=== PATIENT | female | born 1975 | race Caucasian/White ===

== ENCOUNTER → 2019-12-15 11:12 | Outpatient (BNVA) | payer OTHER, SELFPAY | PROVIDERS: PCP Internal Medicine; Referring Provider Internal Medicine; Visit Provider Obstetrics & Gynecology | DX: Z76.89 Persons encountering health services in other specified circumstances (principal) ==

== ENCOUNTER 2019-12-18 13:12 | Outpatient (REF) | payer OTHER, SELFPAY ==
[2019-12-18 13:30] LABS: COVID-19 Test Negative (Negative)
== END 2019-12-18 13:13 | disposition home or self-care (01) ==
LOC: HO.LAB 13:12
PROVIDERS: Visit Provider Internal Medicine
DX: Z20.828 Contact with and (suspected) exposure to other viral communicable diseases (principal)
CPT/HCPCS: 87635

== ENCOUNTER 2019-12-22 16:00 | Outpatient (REF) | payer OTHER, SELFPAY ==
[2019-12-22 16:20] LABS: COVID-19 Test Negative (Negative)
== END 2019-12-22 16:01 | disposition home or self-care (01) ==
LOC: HO.LAB 16:00
PROVIDERS: Visit Provider Internal Medicine
DX: Z20.828 Contact with and (suspected) exposure to other viral communicable diseases (principal)
CPT/HCPCS: 87635

== ENCOUNTER 2020-01-09 09:01 | Outpatient (REF) | payer OTHER, SELFPAY | END 2020-01-09 09:02 | disposition home or self-care (01) | LOC: HO.LAB 09:01 | PROVIDERS: PCP Internal Medicine; Visit Provider Obstetrics & Gynecology | DX: N93.9 Abnormal uterine and vaginal bleeding, unspecified (principal) | CPT/HCPCS: 88305 ==

== ENCOUNTER → 2020-01-15 13:30 | Outpatient (BNV) | payer OTHER, SELFPAY | PROVIDERS: PCP Internal Medicine; Visit Provider Internal Medicine Medical Oncology | DX: D50.9 Iron deficiency anemia, unspecified (principal); E53.8 Deficiency of other specified B group vitamins | CPT/HCPCS: 99213; 99214 ==

== ENCOUNTER → 2020-01-27 08:08 | Outpatient (BNVA) | payer OTHER, SELFPAY | PROVIDERS: Visit Provider Physician Assistant | DX: Z76.89 Persons encountering health services in other specified circumstances (principal) ==

== ENCOUNTER 2020-02-03 08:34 | Outpatient (REF) | payer OTHER, SELFPAY ==
[2020-02-03 09:11] LABS: COVID-19 Test Negative (Negative); IDNOW Serial# 55D5AD1C
== END 2020-02-03 08:35 | disposition home or self-care (01) ==
LOC: HO.LAB 08:34
PROVIDERS: Visit Provider Internal Medicine
DX: Z20.828 Contact with and (suspected) exposure to other viral communicable diseases (principal)
CPT/HCPCS: 87635; C9803

== ENCOUNTER → 2020-03-22 10:05 | Outpatient (BNVA) | payer OTHER, SELFPAY | PROVIDERS: Visit Provider Physician Assistant ==

== ENCOUNTER → 2020-03-29 08:20 | Outpatient (BNVA) | payer OTHER, SELFPAY | PROVIDERS: Visit Provider Physician Assistant ==

== ENCOUNTER → 2020-04-06 08:47 | Outpatient (BNVA) | payer OTHER, SELFPAY | PROVIDERS: Visit Provider Physician Assistant ==

== ENCOUNTER 2020-04-19 10:22 | Outpatient (REF) | payer OTHER, SELFPAY ==
[2020-04-19 10:44] LABS: COVID-19 Test Negative (Negative)
== END 2020-04-19 10:23 | disposition home or self-care (01) ==
LOC: HO.EMPCOV 10:22
PROVIDERS: Visit Provider Internal Medicine
DX: Z20.822 Contact with and (suspected) exposure to COVID-19 (principal)
CPT/HCPCS: 36415; 87635; C9803

== ENCOUNTER → 2020-04-20 09:24 | Outpatient (BNVA) | payer OTHER, SELFPAY | PROVIDERS: PCP Internal Medicine; Visit Provider Physician Assistant ==

== ENCOUNTER 2020-04-26 13:59 | Outpatient (REF) | payer OTHER, SELFPAY | END 2020-04-26 14:00 | disposition home or self-care (01) | LOC: HO.LAB 13:59 | PROVIDERS: PCP Internal Medicine; Visit Provider Obstetrics & Gynecology | DX: L02.214 Cutaneous abscess of groin (principal) | CPT/HCPCS: 87071; 87147; 87186; 87205 ==

== ENCOUNTER → 2020-05-05 14:30 | Outpatient (BNVA) | payer OTHER, SELFPAY | PROVIDERS: PCP Internal Medicine; Visit Provider Obstetrics & Gynecology ==

== ENCOUNTER 2020-05-11 08:45 | Outpatient (REF) | payer OTHER, SELFPAY ==
[2020-05-11 09:06] LABS: COVID-19 Test Negative (Negative); IDNOW Serial# 55D5AD1C
== END 2020-05-11 08:46 | disposition home or self-care (01) ==
LOC: HO.EMPCOV 08:45
PROVIDERS: Visit Provider Internal Medicine
DX: Z20.822 Contact with and (suspected) exposure to COVID-19 (principal)
CPT/HCPCS: 36415; 87635; C9803

== ENCOUNTER 2020-05-19 12:29 | Outpatient (REF) | payer OTHER, SELFPAY ==
[2020-05-19 12:50] LABS: COVID-19 Test Negative (Negative)
== END 2020-05-19 12:30 | disposition home or self-care (01) ==
LOC: HO.EMPCOV 12:29
PROVIDERS: Visit Provider Internal Medicine
DX: Z20.822 Contact with and (suspected) exposure to COVID-19 (principal)
CPT/HCPCS: 36415; 87635; C9803

== ENCOUNTER → 2020-06-04 08:05 | Outpatient (BNVA) | payer OTHER, SELFPAY | PROVIDERS: PCP Internal Medicine; Visit Provider Physician Assistant ==

== ENCOUNTER → 2020-06-18 09:20 | Outpatient (BNVA) | payer OTHER, SELFPAY | PROVIDERS: PCP Internal Medicine; Visit Provider Physician Assistant ==

== ENCOUNTER → 2020-06-25 09:30 | Outpatient (BNVA) | payer OTHER, SELFPAY | PROVIDERS: PCP Internal Medicine; Visit Provider Physician Assistant ==

== ENCOUNTER → 2020-07-05 09:16 | Outpatient (BNVA) | payer OTHER, SELFPAY | PROVIDERS: PCP Internal Medicine; Visit Provider Surgery ==

== ENCOUNTER → 2020-07-12 10:05 | Outpatient (BNVA) | payer OTHER, SELFPAY | PROVIDERS: PCP Internal Medicine; Visit Provider Physician Assistant ==

== ENCOUNTER → 2020-07-19 09:46 | Outpatient (BNVA) | payer OTHER, SELFPAY | PROVIDERS: PCP Internal Medicine; Visit Provider Physician Assistant ==

== ENCOUNTER → 2020-08-10 10:37 | Outpatient (BNVA) | payer OTHER, SELFPAY | PROVIDERS: PCP Internal Medicine; Visit Provider Physician Assistant ==

== ENCOUNTER 2020-08-12 14:09 | Outpatient (REF) | payer OTHER, SELFPAY ==
[2020-08-12 14:42] LABS: COVID-19 Test Negative (Negative)
== END 2020-08-12 14:10 | disposition home or self-care (01) ==
LOC: HO.LAB 14:09
PROVIDERS: Visit Provider Internal Medicine
DX: Z20.822 Contact with and (suspected) exposure to COVID-19 (principal)
CPT/HCPCS: 36415; 87635; C9803

== ENCOUNTER → 2020-08-25 09:23 | Outpatient (BNVA) | payer OTHER, SELFPAY | PROVIDERS: PCP Internal Medicine; Visit Provider Physician Assistant ==

== ENCOUNTER → 2020-09-15 09:26 | Outpatient (BNVA) | payer OTHER, SELFPAY | PROVIDERS: PCP Internal Medicine; Visit Provider Physician Assistant ==

== ENCOUNTER → 2020-09-20 08:29 | Outpatient (BNVA) | payer OTHER, SELFPAY | PROVIDERS: PCP Internal Medicine; Visit Provider Physician Assistant ==

== ENCOUNTER → 2020-09-27 09:21 | Outpatient (BNVA) | payer OTHER, SELFPAY | PROVIDERS: PCP Internal Medicine; Visit Provider Physician Assistant ==

== ENCOUNTER 2020-09-30 08:06 | Outpatient (REF) | payer OTHER, SELFPAY ==
[2020-09-30 09:06] LABS: MANUAL DIFF FLAG NO
[2020-09-30 09:23] LABS: Basophils Percent Auto 0.6 % (0-2); Eosinophils Absolute Auto 0.1 X10*3/uL (0.0-0.4); Eosinophils Percent Auto 2.4 % (0-4); Hematocrit 36.5 % (37-47); Hemoglobin 11.2 g/dl (12.0-16.0); Imm Gran Abs Auto 0.01 X10*3/uL (0.00-0.03); Imm Gran Pct Auto 0.2 % (0.0-0.4); Lymphocytes Absolute Auto 2.1 X10*3/uL (1.2-4.9); Lymphocytes Percent Auto 38.9 % (20-40); Mean Corpuscular HGB Conc 30.7 g/dl (31.0-35.0); Mean Corpuscular Hemoglobin 24.3 pg (27.0-33.0); Mean Corpuscular Volume 79.3 fL (80-98); Mean Platelet Volume 12.1 fL (9.4-12.3); Monocytes Absolute Auto 0.5 X10*3/uL (0.1-1.2); Monocytes Percent Auto 8.5 % (2-11); Neutrophils Absolute Auto 2.6 X10*3/uL (2.0-8.3); Neutrophils Percent Auto 49.4 % (45-73); Platelet Count 242 X10*3/uL (160-400); Red Cell Distribution Width 16.4 % (11.0-16.0); White Blood Count 5.3 X10*3/uL (4.8-10.8)
[2020-09-30 09:49] LABS: Estimated Average Glucose 100 mg/dL; Hemoglobin A1c % 5.1 %
[2020-09-30 09:50] LABS: Alanine Aminotransferase 33 U/L (0-31); Alkaline Phosphatase 110 U/L (39-117); Anion Gap 14 (12-20); Aspartate Amino Transferase 19 U/L (5-31); Bilirubin Total 0.7 mg/dL (0.0-1.0); Blood Urea Nitrogen 11 mg/dL (9-16); C Reactive Protein 0.04 mg/dL (< or = 0.50); Calcium 9.2 mg/dL (8.4-10.2); Carbon Dioxide 21 mmol/L (22-29); Chloride 107 mmol/L (96-108); Cholesterol 183 mg/dL; Estimated Glomerular Filt Rate > 60; Glucose Fasting 80 mg/dL (60-99); HDL Cholesterol 68 mg/dL; Iron 55 mcg/dL (30-160); LDL Cholesterol Calculated 103 mg/dl; Percent Iron Saturation 12 % (15-50); Potassium 4.4 mmol/L (3.3-5.1); Sodium 138 mmol/L (135-145); Total Iron Binding Capacity 460 mcg/dL (228-428); Total Protein 7.7 g/dL (6.5-8.0); Triglycerides 64 mg/dL; Unsaturated Iron Binding 405 ug/dL
[2020-09-30 10:12] LABS: Ferritin 8 ng/mL (10-250); TSH reflex Free T4 0.96 uIU/mL (0.32-4.0)
[2020-09-30 10:53] LABS: Folate 6.5 ng/mL (> or = 4.0); Vitamin B12 486 pg/mL (200-900)
[2020-10-01 17:51] LABS: Calcium (PTHI) 9.4 mg/dL (8.6-10.2); PTHI 75 pg/mL (14-64)
[2020-10-01 21:21] LABS: Insulin Level Total 5.9 uIU/mL
[2020-10-04 16:17] LABS: Zinc 77 mcg/dL (60-130)
[2020-10-05 12:47] LABS: Vitamin B1 8 nmol/L (8-30)
[2020-10-06 17:15] LABS: Vitamin A 22 mcg/dL (38-98)
== END 2020-09-30 08:07 | disposition home or self-care (01) ==
LOC: HO.LAB 08:06
PROVIDERS: PCP Internal Medicine; Visit Provider Physician Assistant
DX: E66.01 Morbid (severe) obesity due to excess calories (principal); Z98.84 Bariatric surgery status
CPT/HCPCS: 36415; 80053; 80061; 82306; 82607; 82728; 82746; 83036; 83525; 83540; 83970; 84425; 84443; 84590; 84630; 85025; 86140

== ENCOUNTER → 2020-10-12 09:43 | Outpatient (BNVA) | payer OTHER, SELFPAY | PROVIDERS: PCP Internal Medicine; Visit Provider Surgery ==

== ENCOUNTER 2020-10-14 08:00 | Outpatient (REF) | payer OTHER, SELFPAY | END 2020-10-14 08:01 | disposition home or self-care (01) | LOC: HO.MDS 08:00 | PROVIDERS: PCP Internal Medicine; Visit Provider Internal Medicine Medical Oncology | DX: D50.9 Iron deficiency anemia, unspecified (principal) | CPT/HCPCS: 96365; J2916 ==

== ENCOUNTER 2020-10-19 12:23 | Outpatient (REF) | payer OTHER, SELFPAY | END 2020-10-19 12:24 | disposition home or self-care (01) | LOC: HO.MDS 12:23 | PROVIDERS: Visit Provider Internal Medicine Medical Oncology | DX: D50.9 Iron deficiency anemia, unspecified (principal) | CPT/HCPCS: J2916; Q0163 ==

== ENCOUNTER 2020-10-28 13:25 | Outpatient (REF) | payer OTHER, SELFPAY | END 2020-10-28 13:26 | disposition home or self-care (01) | LOC: HO.MDS 13:25 | PROVIDERS: PCP Internal Medicine; Visit Provider Internal Medicine Medical Oncology | DX: D50.9 Iron deficiency anemia, unspecified (principal) | CPT/HCPCS: 96365; J2916; Q0163 ==

== ENCOUNTER 2020-11-02 08:03 | Outpatient (REF) | payer OTHER, SELFPAY ==
[2020-11-02 09:35] LABS: Hematocrit 36.5 % (37-47); Hemoglobin 11.3 g/dl (12.0-16.0); Mean Corpuscular Hemoglobin 25.1 pg (27.0-33.0); Mean Corpuscular Volume 81.1 fL (80-98); Mean Platelet Volume 11.8 fL (9.4-12.3); Platelet Count 196 X10*3/uL (160-400); Red Cell Distribution Width 18.8 % (11.0-16.0); White Blood Count 5.4 X10*3/uL (4.8-10.8)
[2020-11-02 10:07] LABS: Ferritin 50 ng/mL (10-250)
== END 2020-11-02 08:04 | disposition home or self-care (01) ==
LOC: HO.MDS 08:03
PROVIDERS: PCP Internal Medicine; Visit Provider Internal Medicine Medical Oncology
DX: D50.9 Iron deficiency anemia, unspecified (principal)
CPT/HCPCS: 36415; 82728; 85027; 96365; J2916; Q0163

== ENCOUNTER → 2020-11-05 15:16 | Outpatient (BNVA) | payer OTHER, SELFPAY | PROVIDERS: PCP Internal Medicine; Visit Provider Physician Assistant Surgical ==

== ENCOUNTER 2020-11-16 09:55 | Outpatient (REF) | payer OTHER, SELFPAY ==
--- NOTE | ~2020-11-16 | FL_ITS ---
EXAMINATION: XR GI SERIES CLINICAL INFORMATION: Gastroesophageal reflux disease COMPARISON: Previous exam most recent February 2017 TECHNIQUE: Upper GI was performed using thin and thick barium and effervescent granules. FINDINGS: There is a small hiatal hernia. There is gastroesophageal reflux. There is mucosal irregularity of the distal thoracic esophagus questionable for esophagitis. There are postoperative changes from gastric bypass. No mass or ulcer is seen. There is an IVC filter that appears unchanged in position likely in the intrahepatic IVC. FLUOROSCOPY TIME: 1.1 minutes DOSE AREA PRODUCT: 11 paz per centimeter squared. 17 saved fluoroscopic images. FL/FL upper GI series IMPRESSION: Small hiatal hernia. Gastroesophageal reflux. Mucosal irregularity of the distal thoracic esophagus questionable for esophagitis.
== END 2020-11-16 09:56 | disposition home or self-care (01) ==
LOC: HO.XRAY 09:55
PROVIDERS: Visit Provider Physician Assistant Surgical
DX: K21.9 Gastro-esophageal reflux disease without esophagitis (principal)
CPT/HCPCS: 74240

== ENCOUNTER → 2020-11-26 10:04 | Outpatient (BNVA) | payer OTHER, SELFPAY | PROVIDERS: PCP Internal Medicine; Visit Provider Physician Assistant Surgical ==

== ENCOUNTER → 2020-12-15 10:00 | Outpatient (BNVA) | payer OTHER, SELFPAY | PROVIDERS: PCP Internal Medicine; Visit Provider Physician Assistant Surgical ==

== ENCOUNTER → 2021-01-13 10:09 | Outpatient (BNVA) | payer OTHER, SELFPAY | PROVIDERS: PCP Internal Medicine; Visit Provider Physician Assistant ==

== ENCOUNTER 2021-02-21 11:42 | Outpatient (REF) | payer OTHER, SELFPAY ==
[2021-02-21 12:50] LABS: IDNOW Serial# 55D5AD1C
[2021-02-21 12:51] LABS: COVID-19 Test Negative (Negative)
== END 2021-02-21 11:43 | disposition home or self-care (01) ==
LOC: HO.LAB 11:42
PROVIDERS: Visit Provider Internal Medicine
DX: Z20.822 Contact with and (suspected) exposure to COVID-19 (principal)
CPT/HCPCS: 36415; 87635

== ENCOUNTER 2021-02-22 08:17 | Outpatient (REF) | payer OTHER, SELFPAY ==
[2021-02-22 10:37] LABS: Influenza A PCR NEGATIVE (Negative); Influenza B PCR NEGATIVE (Negative); Resp Syncy Virus RNA Qual PCR NEGATIVE (Negative); SARS COV2 PCR INHOUSE POSITIVE (Negative)
== END 2021-02-22 08:18 | disposition home or self-care (01) ==
LOC: HO.LAB 08:17
PROVIDERS: Visit Provider Internal Medicine
DX: Z20.822 Contact with and (suspected) exposure to COVID-19 (principal)
CPT/HCPCS: 0241U

== ENCOUNTER 2021-04-08 08:56 | Outpatient (REF) | payer OTHER, SELFPAY ==
[2021-04-08 11:53] LABS: Basophils Percent Auto 0.4 % (0-2); Eosinophils Absolute Auto 0.1 X10*3/uL (0.0-0.4); Eosinophils Percent Auto 1.4 % (0-4); Hematocrit 39.8 % (37.0-47.0); Hemoglobin 12.6 g/dl (12.0-16.0); Imm Gran Abs Auto 0.01 X10*3/uL (0.00-0.03); Imm Gran Pct Auto 0.2 % (0.0-0.4); Lymphocytes Absolute Auto 1.8 X10*3/uL (1.2-4.9); Lymphocytes Percent Auto 35.8 % (20-40); MANUAL DIFF FLAG NO; Mean Corpuscular HGB Conc 31.7 g/dl (31.0-35.0); Mean Corpuscular Hemoglobin 27.5 pg (27.0-33.0); Mean Corpuscular Volume 86.9 fL (80.0-98.0); Mean Platelet Volume 12.2 fL (9.4-12.3); Monocytes Absolute Auto 0.4 X10*3/uL (0.1-1.2); Monocytes Percent Auto 8.5 % (2-11); Neutrophils Absolute Auto 2.7 x10*3/uL (2.0-8.3); Neutrophils Percent Auto 53.7 % (45-73); Platelet Count 240 X10*3/uL (160-400); Red Blood Count 4.58 X10*6/uL (4.20-5.50); Red Cell Distribution Width 14.1 % (11.0-16.0)
[2021-04-08 14:44] LABS: Alanine Aminotransferase 9 U/L (0-31); Albumin Level 4.3 g/dL (3.5-5.0); Alkaline Phosphatase 80 U/L (39-117); Anion Gap 14 (12-20); Aspartate Amino Transferase 14 U/L (5-31); Bilirubin Total 0.8 mg/dL (0.0-1.0); Blood Urea Nitrogen 13 mg/dL (9-16); Calcium 9.6 mg/dL (8.4-10.2); Carbon Dioxide 27 mmol/L (22-29); Chloride 103 mmol/L (96-108); Estimated Glomerular Filt Rate > 60; Glucose Random 84 mg/dL (60-115); Potassium 4.6 mmol/L (3.3-5.1); Sodium 139 mmol/L (135-145); Total Protein 7.9 g/dL (6.5-8.0)
[2021-04-08 15:37] LABS: Vitamin D 25-OH Total 9.1 ng/mL (>30)
[2021-04-14 16:01] LABS: Vitamin A 28 mcg/dL (38-98)
== END 2021-04-08 08:57 | disposition home or self-care (01) ==
LOC: HO.LAB 08:56
PROVIDERS: Internal Medicine Medical Oncology; PCP Internal Medicine; Visit Provider Physician Assistant
DX: E50.9 Vitamin A deficiency, unspecified (principal); E53.8 Deficiency of other specified B group vitamins; E55.9 Vitamin D deficiency, unspecified
CPT/HCPCS: 36415; 80053; 82306; 84590; 85025

== ENCOUNTER → 2021-04-11 11:00 | Outpatient (BNVA) | payer OTHER, SELFPAY | PROVIDERS: PCP Internal Medicine; Visit Provider Physician Assistant Surgical | DX: E55.9 Vitamin D deficiency, unspecified (principal) ==

== ENCOUNTER → 2021-04-26 11:07 | Outpatient (BNVA) | payer OTHER, SELFPAY | PROVIDERS: PCP Internal Medicine; Visit Provider Dietitian, Registered | DX: E66.9 Obesity, unspecified (principal); Z68.35 Body mass index [BMI] 35.0-35.9, adult; Z71.3 Dietary counseling and surveillance | CPT/HCPCS: 97803 ==

== ENCOUNTER → 2021-05-31 09:58 | Outpatient (BNVA) | payer OTHER, SELFPAY | PROVIDERS: PCP Internal Medicine; Visit Provider Physician Assistant Surgical | DX: E55.9 Vitamin D deficiency, unspecified (principal) ==

== ENCOUNTER → 2021-07-04 11:49 | Outpatient (BNVA) | payer OTHER, SELFPAY | PROVIDERS: PCP Internal Medicine; Visit Provider Physician Assistant | DX: Z13.89 Encounter for screening for other disorder (principal) ==

== ENCOUNTER 2021-11-04 12:46 | Outpatient (REF) | payer OTHER, SELFPAY ==
[2021-11-04 13:36] LABS: COVID-19 Test Negative (Negative)
== END 2021-11-04 12:47 | disposition home or self-care (01) ==
LOC: HO.LAB 12:46
PROVIDERS: Visit Provider Internal Medicine
DX: Z20.822 Contact with and (suspected) exposure to COVID-19 (principal)
CPT/HCPCS: 87635; C9803

== ENCOUNTER → 2021-12-15 13:14 | Outpatient (RCR) | payer OTHER, SELFPAY ==
[2020-02-12 06:56] LABS: COVID-19 Test Negative (Negative)
== END | disposition home or self-care (01) ==
LOC: HO.EMPCOV 02-12 06:31
PROVIDERS: Visit Provider Internal Medicine
DX: Z20.828 Contact with and (suspected) exposure to other viral communicable diseases (principal)
CPT/HCPCS: 87635; C9803

== ENCOUNTER 2022-03-15 13:57 | Outpatient (REF) | payer OTHER, SELFPAY | END 2022-03-15 13:58 | disposition home or self-care (01) | LOC: HO.MDS 13:57 | PROVIDERS: Visit Provider Internal Medicine Medical Oncology | DX: D50.9 Iron deficiency anemia, unspecified (principal) | CPT/HCPCS: 96365; J1756 ==

== ENCOUNTER 2022-03-22 14:02 | Outpatient (REF) | payer OTHER, SELFPAY | END 2022-03-22 14:03 | disposition home or self-care (01) | LOC: HO.MDS 14:02 | PROVIDERS: Visit Provider Internal Medicine Medical Oncology | DX: D50.9 Iron deficiency anemia, unspecified (principal); Z68.41 Body mass index [BMI] 40.0-44.9, adult | CPT/HCPCS: 96365; J1756 ==

== ENCOUNTER 2022-03-23 13:37 | Outpatient (REF) | payer OTHER, SELFPAY ==
--- NOTE | ~2022-03-23 | MM_ITS ---
EXAMINATION: MM SCREENING DIGITAL BREAST TOMOSYNTHESIS, BILATERAL CLINICAL INFORMATION: Screening. Asymptomatic. The lifetime risk of breast cancer based on the Tyrer-Cuzick Model is 13%. COMPARISON: Mammography: 04/03/2019, 02/27/2018 TECHNIQUE: Digital breast tomosynthesis is performed in both the craniocaudal and mediolateral oblique views along with computer-aided detection (CAD). Synthesized 2D images are generated from the tomosynthesis. FINDINGS: There are scattered areas of fibroglandular density (ACR BI-RADS breast composition Category b). There are no significant masses, abnormal calcifications, or other abnormalities. Parenchymal pattern is similar to prior studies. There is no developing density or architectural abnormality. The axilla and skin contours are unremarkable. No significant changes. MM/MM tomosynthesis screening BI IMPRESSION: No mammographic evidence of malignancy. ASSESSMENT: BI-RADS 1: Negative RECOMMENDATION: Routine annual mammography screening. This patient's information was entered into a reminder system with a target due date for their next mammogram.
== END 2022-03-23 13:38 | disposition home or self-care (01) ==
LOC: HO.MAMMO 13:37
PROVIDERS: PCP Internal Medicine; Visit Provider Internal Medicine
DX: Z12.31 Encounter for screening mammogram for malignant neoplasm of breast (principal)
CPT/HCPCS: 77063; 77067

== ENCOUNTER 2022-03-29 14:09 | Outpatient (REF) | payer OTHER, SELFPAY | END 2022-03-29 14:10 | disposition home or self-care (01) | LOC: HO.MDS 14:09 | PROVIDERS: Visit Provider Internal Medicine Medical Oncology | DX: D50.9 Iron deficiency anemia, unspecified (principal) | CPT/HCPCS: 96365; J1756 ==

== ENCOUNTER 2022-04-05 14:03 | Outpatient (REF) | payer OTHER, SELFPAY ==
[2022-04-05 15:40] LABS: MANUAL DIFF FLAG NO
[2022-04-05 15:42] LABS: Basophils Percent Auto 0.4 % (0-2); Eosinophils Absolute Auto 0.1 X10*3/uL (0.0-0.4); Eosinophils Percent Auto 1.2 % (0-4); Hematocrit 36.9 % (37.0-47.0); Hemoglobin 11.9 g/dl (12.0-16.0); Imm Gran Abs Auto 0.01 X10*3/uL (0.00-0.03); Imm Gran Pct Auto 0.1 % (0.0-0.4); Lymphocytes Absolute Auto 2.7 X10*3/uL (1.2-4.9); Lymphocytes Percent Auto 34.1 % (20-40); Mean Corpuscular HGB Conc 32.2 g/dl (31.0-35.0); Mean Corpuscular Hemoglobin 27.3 pg (27.0-33.0); Mean Corpuscular Volume 84.6 fL (80.0-98.0); Mean Platelet Volume 11.6 fL (9.4-12.3); Monocytes Absolute Auto 0.7 X10*3/uL (0.1-1.2); Monocytes Percent Auto 9.5 % (2-11); Neutrophils Absolute Auto 4.3 x10*3/uL (2.0-8.3); Neutrophils Percent Auto 54.7 % (45-73); Platelet Count 203 X10*3/uL (160-400); Red Blood Count 4.36 X10*6/uL (4.20-5.50); Red Cell Distribution Width 16.5 % (11.0-16.0); White Blood Count 7.8 X10*3/uL (4.8-10.8)
== END 2022-04-05 14:04 | disposition home or self-care (01) ==
LOC: HO.MDS 14:03
PROVIDERS: Visit Provider Internal Medicine Medical Oncology
DX: D50.9 Iron deficiency anemia, unspecified (principal)
CPT/HCPCS: 36415; 85025; 96365; J1756

== ENCOUNTER 2022-04-14 15:02 | Outpatient (REF) | payer OTHER, SELFPAY | END 2022-04-14 15:03 | disposition home or self-care (01) | LOC: HO.MDS 15:02 | PROVIDERS: Visit Provider Internal Medicine Medical Oncology | DX: D50.9 Iron deficiency anemia, unspecified (principal) | CPT/HCPCS: 96365; J1756 ==

== ENCOUNTER → 2022-04-27 09:53 | Outpatient (BNVA) | payer OTHER, SELFPAY | PROVIDERS: PCP Internal Medicine; Visit Provider Physician Assistant Surgical | DX: Z13.89 Encounter for screening for other disorder (principal) ==

== ENCOUNTER → 2022-05-17 10:26 | Outpatient (BNVA) | payer OTHER, SELFPAY | PROVIDERS: PCP Internal Medicine; Visit Provider Physician Assistant | DX: Z13.89 Encounter for screening for other disorder (principal) ==

== ENCOUNTER 2022-05-18 09:22 | Outpatient (REF) | payer OTHER, SELFPAY ==
--- NOTE | ~2022-05-18 | XR_ITS ---
EXAMINATION: XR BOTH KNEES AP STANDING XR RIGHT KNEE, 2 VIEWS CLINICAL INFORMATION: Right knee pain. COMPARISON: None available. TECHNIQUE: Standing AP view of both knees and lateral and sunrise views of the right knee. FINDINGS: Right Knee: Lmxw-za-vnkyjrsu medial compartment joint space narrowing. Small tract compartment marginal osteophytes. No acute fracture or dislocation. No concerning lytic or blastic osseous lesion. Trace joint effusion. No abnormal soft tissue calcification. Left Knee: Xcrd-xm-xdzhduma medial compartment joint space narrowing with small marginal osteophytes. No acute fracture or dislocation. No concerning lytic or blastic osseous lesion. No abnormal soft tissue calcification. XR/XR knee RT 2V IMPRESSION: RIGHT KNEE: Moderate medial and mild patellofemoral compartment osteoarthritis. Trace joint effusion. LEFT KNEE: Moderate medial compartment osteoarthritis.
--- NOTE | ~2022-05-18 | XR_ITS ---
EXAMINATION: XR BOTH KNEES AP STANDING XR RIGHT KNEE, 2 VIEWS CLINICAL INFORMATION: Right knee pain. COMPARISON: None available. TECHNIQUE: Standing AP view of both knees and lateral and sunrise views of the right knee. FINDINGS: Right Knee: Cmfz-vx-pvlgkwtl medial compartment joint space narrowing. Small tract compartment marginal osteophytes. No acute fracture or dislocation. No concerning lytic or blastic osseous lesion. Trace joint effusion. No abnormal soft tissue calcification. Left Knee: Zlef-cp-pzzgyjlk medial compartment joint space narrowing with small marginal osteophytes. No acute fracture or dislocation. No concerning lytic or blastic osseous lesion. No abnormal soft tissue calcification. XR/XR knee standing BI IMPRESSION: RIGHT KNEE: Moderate medial and mild patellofemoral compartment osteoarthritis. Trace joint effusion. LEFT KNEE: Moderate medial compartment osteoarthritis.
== END 2022-05-18 09:23 | disposition home or self-care (01) ==
LOC: HO.HOSX 09:22
PROVIDERS: PCP Internal Medicine; Visit Provider Physician Assistant
DX: M17.11 Unilateral primary osteoarthritis, right knee (principal)
CPT/HCPCS: 20610; 73560; 73565; J1040

== ENCOUNTER 2022-07-07 06:33 | Day surgery (SDC) | payer OTHER, SELFPAY ==
--- NOTE | 2022-07-06 13:26 | HO.ANESPROP2 ---
Documented by User: Elenita Meza NP 07/06/22 13:27 HPI - Anesthesia Eval Consult details Narrative: 47yo F for Colonoscopy Factor V, hx DVT, no anticoag now PMFSH Active Problems Active Problems: All Active Problems (Updated 05/18/22 @ 10:18 by Christi Marcial) Osteoarthritis of right knee (Acute) Vitamin D deficiency (Acute) GERD (gastroesophageal reflux disease) (Acute) Vitamin A deficiency (Acute) H/O gastric bypass (Acute) Excess skin of arm (Acute) Obesity (BMI 30-39.9) (Acute) DVT (deep venous thrombosis) (Acute) Anemia (Acute) Abnormal uterine bleeding (Acute) Past Medical History Medical History Anemia B12 deficiency Excess skin of arm Factor V Leiden mutation History of DVT (deep vein thrombosis) Iron deficiency anemia Obesity (BMI 30-39.9) Vitamin A deficiency Family History Family History Father Colon cancer Mother HTN (hypertension) Brother Pancreas cancer Sister Breast cancer Surgical History Surgical History H/O gastric bypass Hx of bilateral breast reduction surgery Hx of section Hx of cholecystectomy Hx of tubal ligation Social History Social History Household Members: Spouse and Children Housing: House Are you a primary child care associate to a significant other at home: No Do you presently have visiting nurse or other home services: No Alcohol intake: current Alcohol intake frequency: 3 or more drinks per day Patient Tobacco Use Status: Never used Tobacco Are you DNR?: No Advance Directives: No Advance Directives Information Provided: Yes service: No Current occupational status: employed Sexual orientation: Straight/Heterosexual Gender identity: Female Meds Allergies Allergy/AdvReac Type Severity Reaction Status Date / Time latex [LATEX] Allergy Mild RASH Verified 05/18/22 09:29 doxycycline Allergy Unknown Verified 07/06/22 13:39 Home Medications Medication Instructions Recorded Confirmed Last Taken Type vitamin G67-ododatl B1 1,000 1 ml IM QMONTH 12/15/19 12/23/21 Unknown History mcg-100 mg/mL injection solution zzgtnukh-ufgeowda-etia 45 mg-folic 1 cap PO DAILY 05/31/21 12/23/21 Unknown History acid 800 mcg-vit K 120 mcg capsule (Bariatric Multivitamins) omeprazole 20 mg capsule,delayed 20 mg PO DAILY PRN Acid Reflux 12/23/21 12/23/21 Unknown History release Exam Exam Date and Time: July 06, 2022 1326 Pertinent Lab Results Pertinent Lab Results: Laboratory Tests 04/25/22 04/25/22 14:18 14:18 WBC 7.3 Hgb 13.3 Hct 41.3 Plt Count 213 Sodium 140 Potassium 4.0 Chloride 105 Carbon Dioxide 29 BUN 15 Creatinine 0.73 Assessment and Plan Assessment Anesthesia Assessment: Chart Reviewed Documented by User: Ashanti Oreilly MD 07/07/22 08:08 [facility] Past Medical History Medical History Anemia B12 deficiency Excess skin of arm Factor V Leiden mutation History of DVT (deep vein thrombosis) Iron deficiency anemia Obesity (BMI 30-39.9) Vitamin A deficiency Family History Family History Father Colon cancer Mother HTN (hypertension) Brother Pancreas cancer Sister Breast cancer Family history of problems with anesthesia: No Surgical History Surgical History H/O gastric bypass Hx of bilateral breast reduction surgery Hx of section Hx of cholecystectomy Hx of tubal ligation History of Problems with Anesthesia: No Social History Social History Household Members: Spouse and Children Housing: House Are you a primary child care associate to a significant other at home: No Do you presently have visiting nurse or other home services: No Alcohol intake: current Alcohol intake frequency: 3 or more drinks per day Patient Tobacco Use Status: Never used Tobacco Are you DNR?: No Advance Directives: No Advance Directives Information Provided: Yes service: No Current occupational status: employed Sexual orientation: Straight/Heterosexual Gender identity: Female Meds Allergies Allergy/AdvReac Type Severity Reaction Status Date / Time latex [LATEX] Allergy Mild RASH Verified 05/18/22 09:29 doxycycline Allergy Unknown Verified 07/06/22 13:39 Home Medications Medication Instructions Recorded Confirmed Last Taken Type vitamin F92-jboklye B1 1,000 1 ml IM QMONTH 12/15/19 12/23/21 Unknown History mcg-100 mg/mL injection solution ahrhqwyq-spxmjpiu-sfae 45 mg-folic 1 cap PO DAILY 05/31/21 12/23/21 Unknown History acid 800 mcg-vit K 120 mcg capsule (Bariatric Multivitamins) omeprazole 20 mg capsule,delayed 20 mg PO DAILY PRN Acid Reflux 12/23/21 12/23/21 Unknown History release Exam Airway Mallampati Class: I TM Dist: >3cm Neck ROM: Full Loose/Missing/Broken Teeth: No Heart: rr Lungs: cta Assessment and Plan Assessment Anesthesia Assessment: Anesthesia Plan Discussed Final Anesthetic Review Family History of Problems with Anesthesia: No History of Problems with Anesthesia: No NPO: Yes ASA Class: II Final Preanesthetic Review: No Changes in Pt Med Stat, Meds/Allgs Chart Reviewed, Consent Obtained/Reviewed and Anes Risks/Benef Reviewed Patient Risk: Low Procedure Risk: Low Anesthetic Plan Anesthetic Plan: MAC: Disposition: Standard PACU
[2022-07-07 06:42] VITALS: BMI 39.7
[2022-07-07 06:47] VITALS: BP 141/76; PULSE 63; RESP 18; TEMP 36.2; O2SAT 100
[2022-07-07] MEDS: Lactated Ringers 1,000 ML 100 ML IVCONT (07:09)
--- NOTE | 2022-07-07 08:49 | PM.OP ---
Brief Operative Note Date of Service: 07/07/22 Pre-op diagnosis: Screening Post-op diagnosis: other (Internal hemorrhoids) Procedure: Colonoscopy to the cecum and TI Surgeon: Ruiz Bell Anesthesia: MAC Was an Labor Supervisor used for this Procedure?: No Estimated blood loss (mL): 0 Pathology: none sent Condition: stable Disposition: PACU
[2022-07-07 08:50] VITALS: BP 103/62; PULSE 66; RESP 16; TEMP 36.1; O2SAT 98
[2022-07-07 09:05] VITALS: BP 122/78; PULSE 61; RESP 16; TEMP 36.3; O2SAT 99
--- NOTE | 2022-07-07 09:36 | OP_ITS ---
DATE OF SERVICE: 07/07/2022 SURGEON: Ruiz Bell MD INDICATIONS: The patient presents for evaluation of family history of colon cancer and colon polyps, and colorectal cancer screening. Full consent has been obtained from her for this, including risks of bleeding and perforation. PREOPERATIVE DIAGNOSIS: POSTOPERATIVE DIAGNOSIS: PROCEDURE PERFORMED: Colonoscopy to the cecum and terminal ileum. ESTIMATED BLOOD LOSS: COMPLICATIONS: ANESTHESIA: Monitored anesthesia care. ASSISTANTS: SPECIMENS: PREOPERATIVE DIAGNOSES: Colorectal cancer screening, family history of colon cancer, family history of colon polyps. POSTOPERATIVE DIAGNOSES: Colorectal cancer screening, family history of colon cancer, family history of colon polyps, occasional sigmoid diverticulosis, internal hemorrhoids. DESCRIPTION OF PROCEDURE: The patient was placed in the left lateral decubitus position the digital rectal exam revealed no abnormalities. The Olympus video pediatric colonoscope was entered into the rectum and advanced easily to the cecum. Once in the cecum I did identify a normal-appearing cecal pouch with appendiceal orifice and a normal-appearing ileocecal valve. The terminal ileum was cannulated and appeared normal. The scope was withdrawn back in the colon. The entire cecum and ileocecal valve appeared normal. The scope was then slowly withdrawn assessing all mucosal surfaces carefully. Preparation was excellent. I did not visualize any sign of polyps, colitis, nor angiodysplasia. There were occasional diverticulae noted in the sigmoid colon. In the rectum, the scope was retroflexed visualizing internal hemorrhoids, but no other pathology. The rectal mucosa appeared normal. The scope was straightened and withdrawn from the patient. She tolerated the procedure well and was returned to the recovery area in stable condition. IMPRESSION: 1. Occasional sigmoid diverticulosis. 2. Internal hemorrhoids. PLAN: I would recommend a repeat colonoscopy in 5 years for further screening given her family history of colorectal cancer and colon polyps. She will otherwise see me on a p.r.n. basis. MD BRIAN Scherer/GEORGE / [id number] MTDD
== END 2022-07-07 09:25 | disposition home or self-care (01) ==
PROVIDERS: PCP Internal Medicine; Visit Provider Internal Medicine
PROC: 0DJD8ZZ Inspection of Lower Intestinal Tract, Via Natural or Artificial Opening Endoscopic (ICD-10-PCS; CPT 45378; principal; 2022-07-07 07:30)
DX: Z12.11 Encounter for screening for malignant neoplasm of colon (principal); K57.30 Diverticulosis of large intestine without perforation or abscess without bleeding; K64.8 Other hemorrhoids; Z80.0 Family history of malignant neoplasm of digestive organs; Z83.71 Family history of colonic polyps
CPT/HCPCS: 45378

== ENCOUNTER 2022-09-19 08:58 | Outpatient (AMB) | payer OTHER, SELFPAY ==
--- NOTE | 2022-09-19 09:00 | MHC.OFFVISWM ---
Intake VS Expanded 09/19/22 09:04 Height 5 ft 2 in Weight 224 lb 9.6 oz BMI 41.1 BP 136/83 Blood Pressure Location Rt brachial Blood Pressure Position Sitting Pulse 64 Pulse Source Pulse Oximeter Temp 97.3 F Temperature Source Temporal Artery Scan Pulse Oximetry 98 Oxygen Delivery Method Room Air Body Fat 88.2 Body Fat Percentage 39.3 Free Fat Mass 136.2 Muscle Mass 129.4 Visceral Mass 11.0 Water Mass 97.2 BMR 1,877 Intake Visit Reasons: (OV) [facility] 03/26/17 Critical Care Rn Required: No Allergies latex [LATEX] Allergy (Mild, Verified 09/19/22 09:02) RASH doxycycline Allergy (Verified 09/19/22 09:02) Unknown Medication List - Last Reconciled 09/19/22 by AMADOR Mcclain cholecalciferol (vitamin D3) 250 mcg (2 x 125 mcg (5,000 unit)) PO DAILY clotrimazole 1% 1 appl topical BID jtnbdajvtzkq-pbo-duyy-FA-vit K 45 mg iron- 800 mcg-120 mcg (Bariatric Multivitamins) 1 cap PO DAILY omeprazole 20 mg PO DAILY PRN vitamin L61-gldutnf B1 1,000-100 mg/mL 1 mL IM QMONTH HPI HPI Comments History of Present Illness Details 47 yo female returns for 5 year 6 month f/u to [facility] on 03/26/[address] Pena She states she has not been following a meal plan and not exercising until 2 weeks ago Meal plan: lunch: sandwich dinner: cup of rice and chicken/steak/salmon w fried sweet plantains drinking a lot' of muscato wine but stopped 2 weeks ago Exercise: started walking 2 weeks ago 2.5 miles 3 x per week. [facility] Medical History Anemia B12 deficiency Excess skin of arm Factor V Leiden mutation History of DVT (deep vein thrombosis) Iron deficiency anemia Obesity (BMI 30-39.9) Vitamin A deficiency Surgical History H/O gastric bypass Hx of bilateral breast reduction surgery Hx of section Hx of cholecystectomy Hx of tubal ligation Family History Father Colon cancer Mother HTN (hypertension) Brother Pancreas cancer Sister Breast cancer Social History Household Members: Spouse and Children Housing: House Are you a primary transitional care nurse to a significant other at home: No Do you presently have visiting nurse or other home services: No Alcohol intake: current Alcohol intake frequency: a few times a month Patient Tobacco Use Status: Never used Tobacco service: No Current occupational status: employed Sexual orientation: Straight/Heterosexual Gender identity: Female Female Reproductive History Menstrual Age of Menarche: 12 Review of Systems Const All systems reviewed & are unremarkable except as noted in HPI and below Physical Exam Vital Signs: Last Vital Signs Temp 97.3 F 09/19/22 09:04 Pulse 64 09/19/22 09:04 BP 136/83 09/19/22 09:04 Pulse Ox 98 09/19/22 09:04 Oxygen Delivery Method Room Air 09/19/22 09:04 BMI result Body Mass Index 41.1 Const General: healthy appearing and no acute distress Resp Effort & Inspection: normal respiratory effort Auscultation: clear to auscultation bilaterally Cardio Rate: regular rate Rhythm: regular rhythm GI Auscultation: normal bowel sounds Extrem General: Yes normal to inspection Assessment & Plan Assessment & Plan (1) Morbid obesity: Code(s): E66.01 - Morbid (severe) obesity due to excess calories Plan: 5 yrs out from GBP Re-start shake (premier protein RTD) x 2 meal 6 forks protein, 6 forks veg Exercise daily goal 2000 marcin burned per week Walking 3 x per week and bike/treadmill/stepper 4 x per week rtc 4-6 week with expected gaol 8-10 pound loss Coding Level of Care Code Est Pt Level 3 (38511) Diagnoses Morbid obesity E66.01
[2022-09-19 09:04] VITALS: BP 136/83; PULSE 64; TEMP 36.3; O2SAT 98; BMI 41.1
== END 2022-09-19 09:28 | disposition home or self-care (01) ==
PROVIDERS: PCP Internal Medicine; Visit Provider Physician Assistant Surgical
DX: E66.01 Morbid (severe) obesity due to excess calories (principal)
CPT/HCPCS: 99213

== ENCOUNTER → 2022-09-19 08:58 | Outpatient (BNVA) | payer OTHER, SELFPAY | PROVIDERS: PCP Internal Medicine; Visit Provider Physician Assistant Surgical ==

== ENCOUNTER 2022-11-07 11:26 | Outpatient (REF) | payer OTHER, SELFPAY ==
[2022-11-07 11:56] LABS: MANUAL DIFF FLAG NO
[2022-11-07 12:44] LABS: Basophils Percent Auto 0.4 % (0-2); Eosinophils Percent Auto 0.3 % (0-4); Hematocrit 42.3 % (37.0-47.0); Hemoglobin 13.4 g/dl (12.0-16.0); Imm Gran Abs Auto 0.02 X10*3/uL (0.00-0.03); Imm Gran Pct Auto 0.3 % (0.0-0.4); Lymphocytes Absolute Auto 2.4 X10*3/uL (1.2-4.9); Lymphocytes Percent Auto 33.5 % (20-40); Mean Corpuscular HGB Conc 31.7 g/dl (31.0-35.0); Mean Corpuscular Hemoglobin 27.5 pg (27.0-33.0); Mean Corpuscular Volume 86.7 fL (80.0-98.0); Mean Platelet Volume 11.7 fL (9.4-12.3); Monocytes Absolute Auto 0.6 X10*3/uL (0.1-1.2); Neutrophils Percent Auto 56.5 % (45-73); Platelet Count 244 X10*3/uL (160-400); Red Blood Count 4.88 X10*6/uL (4.20-5.50); Red Cell Distribution Width 13.1 % (11.0-16.0); White Blood Count 7.1 X10*3/uL (4.8-10.8)
[2022-11-07 13:29] LABS: Alanine Aminotransferase 14 U/L (0-31); Albumin Level 4.3 g/dL (3.5-5.0); Alkaline Phosphatase 86 U/L (39-117); Anion Gap 10 (12-20); Aspartate Amino Transferase 16 U/L (5-31); Bilirubin Total 0.6 mg/dL (0.0-1.0); Blood Urea Nitrogen 11 mg/dL (9-16); Calcium 9.8 mg/dL (8.4-10.2); Carbon Dioxide 27 mmol/L (22-29); Chloride 106 mmol/L (96-108); Estimated Glomerular Filt Rate > 60; Glucose Random 68 mg/dL (60-115); Iron 122 mcg/dL (30-160); Percent Iron Saturation 37 % (15-50); Potassium 4.4 mmol/L (3.3-5.1); Sodium 139 mmol/L (135-145); Total Iron Binding Capacity 328 mcg/dL (228-428); Total Protein 7.7 g/dL (6.5-8.0); Unsaturated Iron Binding 206 ug/dL
[2022-11-07 13:45] LABS: Ferritin 49 ng/mL (10-250)
[2022-11-07 13:59] LABS: Folate 4.8 ng/mL (> or = 4.0); Vitamin B12 342 pg/mL (200-900)
== END 2022-11-07 11:27 | disposition home or self-care (01) ==
LOC: HO.LAB 11:26
PROVIDERS: PCP Internal Medicine; Visit Provider Internal Medicine Medical Oncology
DX: D64.9 Anemia, unspecified (principal)
CPT/HCPCS: 36415; 80053; 82607; 82728; 82746; 83540; 85025

== ENCOUNTER → 2022-12-28 11:41 | Outpatient (BNVA) | payer OTHER, SELFPAY | PROVIDERS: PCP Internal Medicine; Visit Provider Physician Assistant ==

== ENCOUNTER → 2023-01-16 08:39 | Outpatient (BNVA) | payer OTHER, SELFPAY | PROVIDERS: PCP Internal Medicine; Visit Provider Physician Assistant Surgical ==

== ENCOUNTER → 2023-01-26 10:33 | Outpatient (BNVA) | payer OTHER, SELFPAY | PROVIDERS: PCP Internal Medicine; Visit Provider Physician Assistant Surgical ==

== ENCOUNTER → 2023-02-01 08:28 | Outpatient (BNVA) | payer OTHER, SELFPAY | PROVIDERS: PCP Internal Medicine; Visit Provider Physician Assistant ==

== ENCOUNTER → 2023-02-12 09:38 | Outpatient (BNVA) | payer OTHER, SELFPAY | PROVIDERS: PCP Internal Medicine; Visit Provider Physician Assistant ==

== ENCOUNTER → 2023-03-01 10:51 | Outpatient (BNVA) | payer OTHER, SELFPAY | PROVIDERS: PCP Internal Medicine; Visit Provider Physician Assistant ==

== ENCOUNTER → 2023-03-08 11:06 | Outpatient (BNVA) | payer OTHER, SELFPAY | PROVIDERS: PCP Internal Medicine; Visit Provider Physician Assistant ==

== ENCOUNTER 2023-03-21 14:57 | Outpatient (REF) | payer OTHER, SELFPAY ==
[2023-03-21 15:19] LABS: MANUAL DIFF FLAG NO
[2023-03-21 15:40] LABS: Basophils Percent Auto 0.1 % (0-2); Eosinophils Percent Auto 0.1 % (0-4); Hematocrit 39.7 % (37.0-47.0); Hemoglobin 12.8 g/dl (12.0-16.0); Lymphocytes Absolute Auto 2.4 X10*3/uL (1.2-4.9); Lymphocytes Percent Auto 35.6 % (20-40); Mean Corpuscular HGB Conc 32.2 g/dl (31.0-35.0); Mean Corpuscular Hemoglobin 27.8 pg (27.0-33.0); Mean Corpuscular Volume 86.1 fL (80.0-98.0); Monocytes Absolute Auto 0.6 X10*3/uL (0.1-1.2); Monocytes Percent Auto 8.6 % (2-11); Neutrophils Absolute Auto 3.7 x10*3/uL (2.0-8.3); Neutrophils Percent Auto 55.6 % (45-73); Platelet Count 206 X10*3/uL (160-400); Red Blood Count 4.61 X10*6/uL (4.20-5.50); Red Cell Distribution Width 12.3 % (11.0-16.0); White Blood Count 6.7 X10*3/uL (4.8-10.8)
== END 2023-03-21 14:58 | disposition home or self-care (01) ==
LOC: HO.LAB 14:57
PROVIDERS: PCP Internal Medicine; Visit Provider Internal Medicine Medical Oncology
DX: D64.9 Anemia, unspecified (principal)
CPT/HCPCS: 36415; 85025

== ENCOUNTER → 2023-03-22 08:47 | Outpatient (BNVA) | payer OTHER, SELFPAY | PROVIDERS: PCP Internal Medicine; Visit Provider Physician Assistant ==

== ENCOUNTER → 2023-04-04 10:59 | Outpatient (BNVA) | payer OTHER, SELFPAY | PROVIDERS: PCP Internal Medicine; Visit Provider Physician Assistant ==

== ENCOUNTER → 2023-04-19 09:35 | Outpatient (BNVA) | payer OTHER, SELFPAY | PROVIDERS: PCP Internal Medicine; Visit Provider Physician Assistant ==

== ENCOUNTER 2023-04-24 11:31 | Outpatient (AMB) | payer OTHER, SELFPAY ==
[2023-04-24 12:51] VITALS: BP 124/74; PULSE 94; TEMP 36.5; O2SAT 99; BMI 39.1
--- NOTE | 2023-04-24 12:51 | MHC.OFFWIV ---
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 Patient bought llia-zzp-cblgwme eyedrops that have not relieved her symptoms. Patient states when she wakes up in the morning her eyes crusted shut. Patient denies any other family members with similar symptoms. She also denies any visual changes or foreign body sensation in her eyes bilaterally. Patient does not wear contacts or glasses for visual acuity. [facility] Medical History Vitamin A deficiency Excess skin of arm Obesity (BMI 30-39.9) Factor V Leiden mutation History of DVT (deep vein thrombosis) Iron deficiency anemia B12 deficiency Anemia Surgical History H/O gastric bypass Hx of bilateral breast reduction surgery Hx of section Hx of cholecystectomy Hx of tubal ligation Family History Father Colon cancer Mother HTN (hypertension) Brother Pancreas cancer Sister Breast cancer Social History (System 12/28/22 @ 12:04 by Josiane Good) Household Members: Spouse and Children Housing: House Are you a primary intensive care ambulance paramedic to a significant other at home: No Do you presently have visiting nurse or other home services: No Alcohol intake: current Alcohol intake frequency: a few times a month Patient Tobacco Use Status: Never used Tobacco service: No Current occupational status: employed Sexual orientation: Straight/Heterosexual Gender identity: Female Female Reproductive History Menstrual Age of Menarche: 12 Review of Systems Const All systems reviewed & are unremarkable except as noted in HPI and below Reports as per HPI Eyes Denies change in vision and Reports other (redness and crusting) ENT Reports no additional complaints Card Reports no additional complaints Resp Reports no additional complaints Physical Exam Vital Signs: Last Vital Signs Temp 97.7 F 04/24/23 12:51 Pulse 94 04/24/23 12:51 BP 124/74 04/24/23 12:51 Pulse Ox 99 04/24/23 12:51 Oxygen Delivery Method Room Air 04/24/23 12:51 BMI result Body Mass Index 39.1 Const General: cooperative, healthy appearing, comfortable, no acute distress, well developed, alert and awake Nutritional Appearance: average body habitus Orientation/consciousness: patient oriented x3 Limitations: no limitations Eyes Visual Zapata: normal visual zapata by confrontation Alignment and Position: alignment normal and position normal Periorbital: periorbital findings normal Eyelids: Yes eyelids normal (No evidence of hordeolum bilaterally) Conjunctivae: conjunctival abnormal (Conjunctiva injected bilaterally, mild yellow crusting left inner canthi) bilateral Pupils: Equal, round and reactive pupils present EOM: EOMs intact bilaterally Direct Ophthalmoscopy: no photophobia Neck Lymphatic: no lymphadenopathy noted Neuro General: patient oriented x3 Cranial nerves: Yes Equal, round and reactive pupils present Assessment & Plan Assessment & Plan (1) Conjunctivitis, bacterial: Code(s): H10.9 - Unspecified conjunctivitis Plan: Antibiotic eyedrops q.i.d. x7 days. Medications: New polymyxin B sulf-trimethoprim 10,000 unit- 1 mg/mL while awake; do not exceed 6 doses in 24 hours 1 drp ophthalmic (eye) QID 10 mL 0RF 7 days Coding Level of Care Code Est Pt Level 3 (57848) Diagnoses Conjunctivitis, bacterial H10.9 Time Spent (min) 20
== END 2023-04-24 13:17 | disposition home or self-care (01) ==
PROVIDERS: PCP Internal Medicine; Visit Provider Physician Assistant
DX: H10.9 Unspecified conjunctivitis (principal)
CPT/HCPCS: 99213

== ENCOUNTER → 2023-05-09 11:01 | Outpatient (BNVA) | payer OTHER, SELFPAY | PROVIDERS: PCP Internal Medicine; Visit Provider Physician Assistant Surgical ==

== ENCOUNTER → 2023-06-07 11:13 | Outpatient (BNVA) | payer OTHER, SELFPAY | PROVIDERS: PCP Internal Medicine; Visit Provider Physician Assistant Surgical ==

== ENCOUNTER 2023-07-04 09:15 | Outpatient (REF) | payer OTHER, SELFPAY ==
[2023-07-04 09:48] LABS: MANUAL DIFF FLAG NO
[2023-07-04 09:52] LABS: Basophils Percent Auto 0.5 % (0-2); Eosinophils Percent Auto 0.4 % (0-4); Hematocrit 39.8 % (37.0-47.0); Hemoglobin 13.1 g/dl (12.0-16.0); Imm Gran Abs Auto 0.01 X10*3/uL (0.00-0.03); Imm Gran Pct Auto 0.2 % (0.0-0.4); Lymphocytes Absolute Auto 2.2 X10*3/uL (1.2-4.9); Lymphocytes Percent Auto 39.2 % (20-40); Mean Corpuscular HGB Conc 32.9 g/dl (31.0-35.0); Mean Corpuscular Hemoglobin 28.2 pg (27.0-33.0); Mean Corpuscular Volume 85.8 fL (80.0-98.0); Mean Platelet Volume 11.9 fL (9.4-12.3); Monocytes Absolute Auto 0.5 X10*3/uL (0.1-1.2); Monocytes Percent Auto 8.1 % (2-11); Neutrophils Absolute Auto 2.9 x10*3/uL (2.0-8.3); Neutrophils Percent Auto 51.6 % (45-73); Platelet Count 206 X10*3/uL (160-400); Red Blood Count 4.64 X10*6/uL (4.20-5.50); Red Cell Distribution Width 13.2 % (11.0-16.0); White Blood Count 5.7 X10*3/uL (4.8-10.8)
[2023-07-04 10:10] LABS: Alanine Aminotransferase 23 U/L (0-31); Albumin Level 4.3 g/dL (3.5-5.0); Alkaline Phosphatase 77 U/L (39-117); Anion Gap 14 (12-20); Aspartate Amino Transferase 17 U/L (5-31); Bilirubin Total 0.7 mg/dL (0.0-1.0); Blood Urea Nitrogen 11 mg/dL (9-16); Calcium 9.9 mg/dL (8.4-10.2); Carbon Dioxide 25 mmol/L (22-29); Chloride 107 mmol/L (96-108); Cholesterol 213 mg/dL (<200); Estimated Glomerular Filt Rate > 60; Glucose Random 78 mg/dL (60-115); HDL Cholesterol 76 mg/dL (>40); Iron 129 mcg/dL (30-160); LDL Cholesterol Calculated 123 mg/dL (<100); Percent Iron Saturation 38 % (15-50); Potassium 3.9 mmol/L (3.3-5.1); Sodium 142 mmol/L (135-145); Total Iron Binding Capacity 339 mcg/dL (228-428); Total Protein 7.9 g/dL (6.5-8.0); Triglycerides 70 mg/dL (<150); Unsaturated Iron Binding 210 ug/dL
[2023-07-04 10:24] LABS: Ferritin 78 ng/mL (10-250)
[2023-07-04 12:35] LABS: Reflex LDLD? No
== END 2023-07-04 09:16 | disposition home or self-care (01) ==
LOC: HO.LAB 09:15
PROVIDERS: PCP Internal Medicine; Visit Provider Internal Medicine Medical Oncology
DX: Z13.6 Encounter for screening for cardiovascular disorders (principal); D64.9 Anemia, unspecified
CPT/HCPCS: 36415; 80053; 80061; 82728; 83540; 85025

== ENCOUNTER → 2023-07-10 10:03 | Outpatient (BNVA) | payer OTHER, SELFPAY | PROVIDERS: PCP Internal Medicine; Visit Provider Physician Assistant Surgical ==

== ENCOUNTER 2023-07-25 08:47 | Outpatient (AMB) | payer OTHER, SELFPAY ==
--- NOTE | 2023-07-25 09:19 | MHC.OFFWIV ---
Intake Vital Signs 07/25/23 09:20 Height 5 ft 2 in Weight 206 lb BMI 37.7 BP 118/72 Blood Pressure Location Rt brachial Position Sitting Pulse 65 Pulse Source Pulse Oximeter Pulse Oximetry (%) 100 Oxygen Delivery Method Room Air Intake Visit Reasons: Est/Uti(nat) Patient Tobacco Use Status: Never used Tobacco Allergies latex [LATEX] Allergy (Mild, Verified 07/03/23 15:15) RASH doxycycline Allergy (Verified 07/03/23 15:15) Unknown Medication List - Last Reconciled 07/25/23 by Franklin Cannon MD cholecalciferol (vitamin D3) 250 mcg (2 x 125 mcg (5,000 unit)) PO DAILY gfczasdaoddd-qoe-gaff-FA-vit K 45 mg iron- 800 mcg-120 mcg (Bariatric Multivitamins) 1 cap PO DAILY omeprazole 20 mg PO DAILY PRN vitamin O36-rvnrott B1 1,000-100 mg/mL 1 mL IM QMONTH HPI Est/Uti(nat) HPI Details Patient is a 48-year-old female came in with a chief complaint of burning urination Which started yesterday, and now also have frequency of urination Patient admits not drinking enough water and is drinking too much soda UA has signs of bladder infection with positive leuk esterase and blood Urine is concentrated She said that she was start drinking more water and will cut down on soda I have sent Macrobid 100 mg b.i.d. for 5 days Review system: There is no fever no chills there is no abdominal pain there is no nausea vomiting or back pain. [facility] Medical History Vitamin A deficiency Excess skin of arm Obesity (BMI 30-39.9) Factor V Leiden mutation History of DVT (deep vein thrombosis) Iron deficiency anemia B12 deficiency Anemia Surgical History Hx of tubal ligation Hx of section Hx of cholecystectomy Hx of bilateral breast reduction surgery H/O gastric bypass Family History Father Colon cancer Mother HTN (hypertension) Brother Pancreas cancer Sister Breast cancer Social History Household Members: Spouse and Children Housing: House Are you a primary care management associate to a significant other at home: No Do you presently have visiting nurse or other home services: No Alcohol intake: current Alcohol intake frequency: a few times a month Patient Tobacco Use Status: Never used Tobacco service: No Current occupational status: employed Sexual orientation: Straight/Heterosexual Gender identity: Female Female Reproductive History Menstrual Age of Menarche: 12 Review of Systems Const All systems reviewed & are unremarkable except as noted in HPI and below Physical Exam Vital Signs: Last Vital Signs Pulse 65 07/25/23 09:20 BP 118/72 07/25/23 09:20 Pulse Ox 100 07/25/23 09:20 Oxygen Delivery Method Room Air 07/25/23 09:20 BMI result Body Mass Index 37.7 Const General: no acute distress Orientation/consciousness: patient oriented x3 Eyes General: appearance normal, both eyes and all related structures Resp Effort & Inspection: normal respiratory effort and able to speak in complete sentences GI Other: No abdominal pain General: Yes no CVA tenderness Back/Spine/Pelvis Back: no CVA tenderness Neuro General: patient oriented x3 Psych Mental Status: mental status grossly normal Results AMB Urinalysis, Automated UA Leukoctes 15 Belkis/uL Last Edit by Dioni Veliz MA on 07/25/23 09:25 UA Nitrite Negative Last Edit by Dioni Veliz MA on 07/25/23 09:25 UA Urobilinogen 0.2 mg/dL Last Edit by Dioni Veliz MA on 07/25/23 09:25 UA Protein 15 mg/dL Last Edit by Dioni Veliz MA on 07/25/23 09:25 UA pH 6.0 Last Edit by Dioni Veliz MA on 07/25/23 09:25 UA Blood 80 Roger/uL Last Edit by Dioni Veliz MA on 07/25/23 09:25 UA Specific [place] 1.030 Last Edit by Dioni Veliz MA on 07/25/23 09:25 UA Ketone Negative Last Edit by Dioni Veliz MA on 07/25/23 09:25 UA Bilirubin 1 mg/dL Last Edit by Dioni Veliz MA on 07/25/23 09:25 UA Glucose 0 mg/dL Last Edit by Dioni Veliz MA on 07/25/23 09:25 Results Reviewed Results Reviewed: Laboratory Last Values Urine pH (Auto) 6.0 07/25/23 09:25 Specific [place] (Auto) 1.030 07/25/23 09:25 Urine Protein (Auto) 15 mg/dL 07/25/23 09:25 Glucose (UA)(Auto) 0 mg/dL 07/25/23 09:25 Urine Ketones (Auto) Negative 07/25/23 09:25 Urine Blood (Auto) 80 Roger/uL 07/25/23 09:25 Urine Nitrite (Auto) Negative 07/25/23 09:25 Urine Bilirubin (Auto) 1 mg/dL 07/25/23 09:25 Urine Urobilinogen (Auto) 0.2 mg/dL 07/25/23 09:25 Leukocyte Esterase (Auto) 15 Belkis/uL 07/25/23 09:25 Assessment & Plan Assessment & Plan (1) Acute cystitis: Code(s): N30.00 - Acute cystitis without hematuria Qualifiers: Hematuria presence: with hematuria Qualified Code(s): N30.01 - Acute cystitis with hematuria Plan Patient is a 48-year-old female came in with a chief complaint of burning urination Which started yesterday, and now also have frequency of urination Patient admits not drinking enough water and is drinking too much soda UA has signs of bladder infection with positive leuk esterase and blood Urine is concentrated She said that she was start drinking more water and will cut down on soda I have sent Macrobid 100 mg b.i.d. for 5 days Review system: There is no fever no chills there is no abdominal pain there is no nausea vomiting or back pain. Orders: Orders Urine Culture Today N30.00 - Acute cystitis without hematuria Medications: New nitrofurantoin monohyd/m-cryst 100 mg (Macrobid) must administer with a meal/food 100 mg PO Q12H 10 caps 0RF 5 days Coding Level of Care Code Est Pt Level 3 (17272) Diagnoses Acute cystitis with hematuria N30.01 Hematuria presence: with hematuria
[2023-07-25 09:20] VITALS: BP 118/72; PULSE 65; O2SAT 100; BMI 37.7
== END 2023-07-25 10:50 | disposition home or self-care (01) ==
PROVIDERS: PCP Internal Medicine; Visit Provider Internal Medicine
DX: N30.01 Acute cystitis with hematuria (principal)
CPT/HCPCS: 99213

== ENCOUNTER 2023-07-25 13:09 | Outpatient (REF) | payer OTHER, SELFPAY | END 2023-07-25 13:10 | disposition home or self-care (01) | LOC: HO.LNP 13:09 | PROVIDERS: Visit Provider Internal Medicine | DX: N30.00 Acute cystitis without hematuria (principal) | CPT/HCPCS: 87086 ==

== ENCOUNTER → 2023-08-03 11:17 | Outpatient (BNVA) | payer OTHER, SELFPAY | PROVIDERS: PCP Internal Medicine; Visit Provider Physician Assistant Surgical ==

== ENCOUNTER → 2023-08-21 10:30 | Outpatient (BNVA) | payer OTHER, SELFPAY | PROVIDERS: PCP Internal Medicine; Visit Provider Physician Assistant Surgical ==

== ENCOUNTER → 2023-09-04 10:04 | Outpatient (BNVA) | payer OTHER, SELFPAY | PROVIDERS: PCP Internal Medicine; Visit Provider Physician Assistant Surgical ==

== ENCOUNTER → 2023-09-11 10:01 | Outpatient (BNVA) | payer SELFPAY | PROVIDERS: PCP Internal Medicine; Visit Provider Registered Nurse | DX: Z02.1 Encounter for pre-employment examination (principal) ==

== ENCOUNTER 2023-09-25 10:56 | Outpatient (AMB) | payer OTHER, SELFPAY ==
--- NOTE | 2023-09-25 10:59 | A.OFFVIS_ITS ---
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: No Allergies latex [LATEX] Allergy (Mild, Verified 09/25/23 11:05) RASH doxycycline Allergy (Verified 09/25/23 11:05) Unknown Medication List - Last Reconciled 09/25/23 by AMADOR Mcclain cholecalciferol (vitamin D3) 250 mcg (2 x 125 mcg (5,000 unit)) PO DAILY hvlkeczkwetp-mzi-oxwh-FA-vit K 45 mg iron- 800 mcg-120 mcg (Bariatric Multivitamins) 1 cap PO DAILY nitrofurantoin monohyd/m-cryst 100 mg (Macrobid) 100 mg PO Q12H 5 days omeprazole 20 mg PO DAILY PRN vitamin P54-jmudpha B1 1,000-100 mg/mL 1 mL IM QMONTH HPI Comments Details: This?a?45?yo female who is s/p revision GBP on?03/26/[address] Quarles. Presents for 6 year 6 month post op visit. Weight today is 196.6 lb with a BMI of 36. No complaints of nausea, emesis, abdominal pain or reflux. She states that she is concerned about the excess skin of her arms. She states that she intermittently gets a rash and that she would like to have Plastic surgery to remove the excess skin. We discussed the need to achieve a healthy weight and she will strive to achieve this. Taking celebrate MVI Present meal plan includes: cherie, grape, pear, apple, raspberry, 2c salad 1 c sometimes w protein (handful) yogurt and fruit Drinking 32 oz water, 16 oz tea ? 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 [facility] Medical History Vitamin A deficiency Excess skin of arm Obesity (BMI 30-39.9) Factor V Leiden mutation History of DVT (deep vein thrombosis) Iron deficiency anemia B12 deficiency Anemia Surgical History Hx of tubal ligation Hx of section Hx of cholecystectomy Hx of bilateral breast reduction surgery H/O gastric bypass Family History Father Colon cancer Mother HTN (hypertension) Brother Pancreas cancer Sister Breast cancer Social History Household Members: Spouse and Children Housing: House Are you a primary certified social workers in health care to a significant other at home: No Do you presently have visiting nurse or other home services: No Alcohol intake: current Alcohol intake frequency: a few times a month Patient Tobacco Use Status: Never used Tobacco service: No Current occupational status: employed Sexual orientation: Straight/Heterosexual Gender identity: Female Female Reproductive History Menstrual Age of Menarche: 12 Physical Exam Vital Signs: Last Vital Signs Temp 97.2 F 09/25/23 11:07 Pulse 65 09/25/23 11:07 BP 135/75 09/25/23 11:07 Pulse Ox 98 09/25/23 11:07 Oxygen Delivery Method Room Air 09/25/23 11:07 BMI result Body Mass Index 36.0 Const General: healthy appearing and no acute distress Resp Effort & Inspection: normal respiratory effort Auscultation: clear to auscultation bilaterally Cardio Rate: regular rate Rhythm: regular rhythm GI Auscultation: normal bowel sounds Skin Other: Excess skin of bilateral arms without evidence of active rash Extrem General: Yes normal to inspection Assessment & Plan Assessment & Plan (1) H/O gastric bypass: Code(s): Z98.84 - Bariatric surgery status Category: Surgical Plan: Patient has not been following a healthy meal plan. She was given a paper with a link to the [email or web address] allen that we have developed so that she may independently create a meal plan and exercise plan. She states that her goal is to have skin removal surgery of her arms. We discussed the need of achieving a healthy weight and certainly having a BMI below 30. She does not want to lose much weight below 160 lb. We discussed a goal of at least 156 lb, approximately 10 lb loss per month to help her achieve her stated goal of potentially having excess skin removal surgery before the end of the year. She will alert me to any rashes that she gets so we may prescribe appropriate medications. Additionally, she recently had labs in June due to underlying anemia. We will supplement the labs with some vitamin levels that were not checked. She has been encouraged to communicate with me and we will have her return to the office as scheduled. Orders: Orders Hemoglobin A1c Today E50.9 - Vitamin A deficiency, unspecified, Z98.84 - Bariatric surgery status Vitamin A Today E50.9 - Vitamin A deficiency, unspecified, Z98.84 - Bariatric surgery status Zinc Today E50.9 - Vitamin A deficiency, unspecified, Z98.84 - Bariatric surgery status Vitamin D 25-OH Total Today E50.9 - Vitamin A deficiency, unspecified, Z98.84 - Bariatric surgery status TSH reflex Free T4 Today E50.9 - Vitamin A deficiency, unspecified, Z98.84 - Bariatric surgery status Vitamin B12 and Folate Today E50.9 - Vitamin A deficiency, unspecified, Z98.84 - Bariatric surgery status Vitamin B1 Today E50.9 - Vitamin A deficiency, unspecified, Z98.84 - Bariatric surgery status
[2023-09-25 11:07] VITALS: BP 135/75; PULSE 65; TEMP 36.2; O2SAT 98; BMI 36.0
== END 2023-09-25 11:48 | disposition home or self-care (01) ==
PROVIDERS: PCP Internal Medicine; Visit Provider Physician Assistant Surgical
DX: E66.9 Obesity, unspecified (principal); Z68.36 Body mass index [BMI] 36.0-36.9, adult; Z98.84 Bariatric surgery status
CPT/HCPCS: 99214

== ENCOUNTER → 2023-09-25 10:56 | Outpatient (BNVA) | payer OTHER, SELFPAY | PROVIDERS: PCP Internal Medicine; Visit Provider Physician Assistant Surgical ==

== ENCOUNTER → 2023-10-03 10:02 | Outpatient (BNVA) | payer OTHER, SELFPAY | PROVIDERS: PCP Internal Medicine; Visit Provider Physician Assistant Surgical ==

== ENCOUNTER → 2023-10-17 10:04 | Outpatient (BNVA) | payer OTHER, SELFPAY | PROVIDERS: PCP Internal Medicine; Visit Provider Physician Assistant Surgical ==

== ENCOUNTER → 2023-10-31 10:25 | Outpatient (BNVA) | payer OTHER, SELFPAY | PROVIDERS: PCP Internal Medicine; Visit Provider Physician Assistant Surgical ==

== ENCOUNTER → 2023-11-08 10:38 | Outpatient (BNVA) | payer OTHER, SELFPAY | PROVIDERS: PCP Internal Medicine; Visit Provider Physician Assistant Surgical ==

== ENCOUNTER → 2023-11-09 10:30 | Outpatient (BNVA) | payer OTHER, SELFPAY | PROVIDERS: PCP Internal Medicine; Visit Provider Physician Assistant Surgical ==

== ENCOUNTER → 2023-11-28 13:04 | Outpatient (BNVA) | payer OTHER, SELFPAY | PROVIDERS: PCP Internal Medicine; Visit Provider Physician Assistant Surgical ==

== ENCOUNTER 2023-12-13 13:58 | Outpatient (AMB) | payer OTHER, SELFPAY ==
--- NOTE | 2023-12-13 14:10 | MHC.OFFVISWM ---
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 Presents for 6 year 9 month post op visit. Weight today is 187.4 with a BMI of 34.3. Weight at her last visit in August was 196.6 lb with a BMI of 36. No complaints of nausea, emesis, abdominal pain or reflux. She states that she is concerned about the excess skin of her arms and legs. She states that she intermittently gets a rash and that she would like to have Plastic surgery to remove the excess skin. We discussed the need to achieve a healthy weight and she will strive to achieve this. She reports she did use the right BMI allen however has not been following the plans exactly as directed. Taking celebrate MVI Present meal plan includes: cherie, grape, pear, apple, raspberry, 2c 4 oz of protein and 1 cup of vegetables or a celebrate 4 in 1 shake with 1 scoop Drinking 32 oz water, 16 oz tea ? 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 [facility] Medical History Vitamin A deficiency Excess skin of arm Obesity (BMI 30-39.9) Factor V Leiden mutation History of DVT (deep vein thrombosis) Iron deficiency anemia B12 deficiency Anemia Surgical History Hx of tubal ligation Hx of section Hx of cholecystectomy Hx of bilateral breast reduction surgery H/O gastric bypass Family History Father Colon cancer Mother HTN (hypertension) Brother Pancreas cancer Sister Breast cancer Social History Household Members: Spouse and Children Housing: House Are you a primary intensive care nurse to a significant other at home: No Do you presently have visiting nurse or other home services: No Alcohol intake: current Alcohol intake frequency: a few times a month Patient Tobacco Use Status: Never used Tobacco service: No Current occupational status: employed Sexual orientation: Straight/Heterosexual Gender identity: Female Female Reproductive History Menstrual Age of Menarche: 12 Review of Systems Const All systems reviewed & are unremarkable except as noted in HPI and below Physical Exam Vital Signs: Last Vital Signs Temp 97.9 F 12/13/23 14:17 Pulse 85 12/13/23 14:17 BP 141/69 H 12/13/23 14:17 Pulse Ox 99 12/13/23 14:17 Oxygen Delivery Method Room Air 12/13/23 14:17 BMI result Body Mass Index 34.3 Skin Other: Excess skin noted of bilateral upper extremities Assessment & Plan Assessment & Plan (1) Obesity (BMI 30-39.9): Code(s): E66.9 - Obesity, unspecified Category: Medical Plan: Patient has been encouraged to follow the recommendations on the right BMI allen. we discussed the importance of following the meal plan exactly and to text with any questions or concerns. Discussed the importance of achieving a healthy weight and maintaining it prior to submission for medically necessary skin removal surgery of her arms and her legs. Continue to monitor for any rash, alerting me if she does get this so as I may prescribed an antifungal. Encouraged to increase exercise by at least 1 day and track calories while doing so. We will have her return to the office in approximately 4 weeks. Encouraged to get labs that were ordered at her last visit
[2023-12-13 14:17] VITALS: BP 141/69; PULSE 85; TEMP 36.6; O2SAT 99; BMI 34.3
== END 2023-12-13 15:24 | disposition home or self-care (01) ==
PROVIDERS: PCP Internal Medicine; Visit Provider Physician Assistant Surgical
DX: E66.9 Obesity, unspecified (principal)
CPT/HCPCS: 99213

== ENCOUNTER → 2023-12-13 13:58 | Outpatient (BNVA) | payer OTHER, SELFPAY | PROVIDERS: PCP Internal Medicine; Visit Provider Physician Assistant Surgical | DX: E50.9 Vitamin A deficiency, unspecified (principal); Z98.84 Bariatric surgery status ==

== ENCOUNTER → 2024-01-23 09:34 | Outpatient (BNVA) | payer OTHER, SELFPAY | PROVIDERS: PCP Internal Medicine; Visit Provider Physician Assistant Surgical ==

== ENCOUNTER → 2024-04-02 14:30 | Outpatient (BNVA) | payer OTHER, SELFPAY | PROVIDERS: PCP Internal Medicine; Visit Provider Physician Assistant Surgical ==

== ENCOUNTER → 2024-04-16 10:59 | Outpatient (BNVA) | payer OTHER, SELFPAY | PROVIDERS: PCP Internal Medicine; Visit Provider Physician Assistant Surgical ==

== ENCOUNTER → 2024-05-07 10:57 | Outpatient (BNVA) | payer OTHER, SELFPAY | PROVIDERS: PCP Internal Medicine; Visit Provider Physician Assistant Surgical ==

== ENCOUNTER → 2024-07-24 10:27 | Outpatient (BNVA) | payer OTHER, SELFPAY | PROVIDERS: Visit Provider Physician Assistant Surgical ==

== ENCOUNTER → 2024-08-01 10:31 | Outpatient (BNVA) | payer OTHER, SELFPAY | PROVIDERS: Visit Provider Physician Assistant Surgical ==

== ENCOUNTER → 2024-08-11 09:17 | Outpatient (BNVA) | payer OTHER, SELFPAY | PROVIDERS: Visit Provider Physician Assistant Surgical ==

== ENCOUNTER 2024-09-25 13:07 | Outpatient (AMB) | payer OTHER, SELFPAY ==
--- NOTE | 2024-09-25 13:15 | A.OFFPC_ITS ---
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 Allergies latex (LATEX) Allergy (Mild, Verified 09/25/24 13:20) RASH doxycycline Allergy (Verified 09/25/24 13:20) Unknown Medication List - Last Reconciled 09/25/24 by Gal Galeana MD cholecalciferol (vitamin D3) 250 mcg (2 x 125 mcg (5,000 unit)) PO DAILY oixwbpxcusml-wvb-jzjz-FA-vit K 45 mg iron- 800 mcg-120 mcg (Bariatric Multivitamins) 1 cap PO DAILY omeprazole 20 mg PO DAILY PRN vitamin D42-whqidlb B1 1,000-100 mg/mL 1 mL IM QMONTH Tobacco use date assessed: 09/25/24 Dental Screening Dental Screen Date: 09/25/24 Did you have a dental visit in the last 12 months?: Yes Did you have a dental problem in the last 6 months where you did not have access to dental care?: No Was dental information given to patient?: Patient has dentist HPI 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 Paternal Uncle Pancreas cancer Paternal Aunt Breast cancer Maternal Aunt Lymphoma Maternal Grandfather Myocardial infarct Social History (Updated 09/25/24 @ 13:49 by Gal Galeana MD) Household Members: Spouse and Children Housing: House Are you a primary resident caregiver to a significant other at home: No Do you presently have visiting nurse or other home services: No Alcohol intake: current Alcohol intake frequency: a few times a month Comment: 2 glasses of win QOD Patient Tobacco Use Status: Never used Tobacco e-Cigarette/Vaping Use: Never Used service: No Current occupational status: employed Current [place]: [employer] [place] Sexual orientation: Straight/Heterosexual Gender identity: Female Cognitive needs: No Hearing needs: No Vision needs: No Female Reproductive History Menstrual Age of Menarche: 12 Questionnaire PHQ-9 Over the last 2 weeks, how often have you been bothered by any of the following problems? 1. Little interest or pleasure in doing things: not at all 2. Feeling down, depressed, or hopeless: not at all 3. Trouble falling or staying asleep, or sleeping too much: several days 4. Feeling tired or having little energy: several days 5. Poor appetite or overeating: not at all 6. Feeling bad about yourself - or that you are a failure or have let yourself or your family down: not at all 7. Trouble concentrating on things, such as reading the newspaper or watching television: not at all 8. Moving or speaking so slowly that other people could have noticed. Or the opposite - being so fidgety or restless that you have been moving around a lot more than usual: not at all 9. Thoughts that you would be better off or of hurting yourself in some way: not at all Total score: 2 Depression Screening Interpretation: Negative Depression Screening Done: Yes 40059 - PHQ-9 Billing: Yes Source: Developed by Drs. Ruiz Brambila, Lissett Donnelly, Sandeep Welsh and colleagues, with an educational juan carlos from [employer]. Thrive Questionnaire Date Thrive assessed: 09/25/24 I am a: Patient What is your living situation today?: I have a steady place to live Within the past 12 months, did the food you bought not last and you didn't have the money to get more?: Never true Within the past 12 months, did you worry whether your food would run out before you got money to buy more?: Never true Do you have trouble paying for medicines?: No Do you have trouble getting transportation to medical appointments?: No Do you have trouble paying your heating and electricity bill?: No Do you have trouble taking care of your child, family member or friend?: No Do you have trouble with day-to-day activities such as bathing, preparing meals, shopping, managing finances, etc.?: No Are you currently unemployed and looking for a job?: No Are you interested in more education?: No Please select the resources that you would like help with: None Currently or been in a relationship where the following occur: No concerns reported THRIVE Score: 0 AUDIT C Alcohol Use Questionnaire (AUDIT-C) 1. How often do you have a drink containing alcohol?: 2-4 times a month 2. How many drinks containing alcohol do you have on a typical day when you are drinking?: 1 or 2 3. How often do you have six or more drinks on one occasion?: Less than monthly Total Score: 3 GABY-7 AMB Questionnaire GABY-7 Date GABY - 7 assessed: 09/25/24 Feeling nervous, anxious, or on edge: 0 = Not at all Not being able to stop or control worryin = Not at all Worrying too much about different things: 0 = Not at all Trouble relaxin = Several days Being so restless that it is hard to sit still: 0 = Not at all Becoming easily annoyed or irritable: 0 = Not at all Feeling afraid as if something awful might happen: 0 = Not at all Total GABY-7 score (0-4 normal; 5-9 mild; 10-14 moderate; 15-21 severe): 1 Source: Developed by Drs. Ruiz Brambila, Lissett Donnelly, Sandeep Welsh and colleagues, with an educational juan carlos from [employer]. GABY-7 Assessment Billing GABY-7 Assessment Tool: GABY-7 Assessment 82250 Physical exam (Primary Care) Vital Signs: Last Vital Signs Temp 97.0 F 09/25/24 13:16 Pulse 78 09/25/24 13:16 Resp 18 09/25/24 13:16 BP 126/82 09/25/24 13:16 Pulse Ox 98 09/25/24 13:16 Oxygen Delivery Method Room Air 09/25/24 13:16 BMI result Body Mass Index 39.4 Tobacco/Smoking Status: Tobacco use Status Tobacco use date assessed 09/25/24 09/25/24 13:22 Patient Tobacco Use Status Never used Tobacco 09/25/24 13:49 e-Cigarette/Vaping Use Never Used 09/25/24 13:49 PHQ-9: PHQ-9 Score PHQ-9: Total score 2 09/25/24 13:37 Depression Screening Interpretation: Negative Thrive Assessment: Date of Thrive Assessment Date Thrive assessed 09/25/24 09/25/24 13:22 Currently or been in a relationship where the following occur: No concerns reported Const General: alert; No acute distress Eyes Conjunctivae: conjunctivae normal Resp Auscultation: clear to auscultation bilaterally Cardio Rate: regular rate Rhythm: regular rhythm GI Inspection: Yes normal to inspection Extrem General: Yes normal to inspection and No edema Coding Level of Care Code New Pt Level 4 (38859) Diagnoses Obesity (BMI 30-39.9) E66.9 H/O gastric bypass Z98.84 DVT (deep venous thrombosis) I82.409 GERD (gastroesophageal reflux disease) K21.9 Anemia D64.9 LFT elevation R79.89 Breast cancer screening by mammogram Z12.31 Cervical cancer screening Z12.4 Additional Codes GABY-7 Assessment Billing - GABY-7 Assessment Tool: GABY-7 Assessment 83033 ([id number]) PHQ-9 - 65135 - PHQ-9 Billing: Yes ([id number]) Assessment & Plan Assessment & Plan (1) Obesity (BMI 30-39.9): Code(s): E66.9 - Obesity, unspecified Category: Medical Plan: Continue with diet and exercise (2) H/O gastric bypass: Code(s): Z98.84 - Bariatric surgery status Category: Surgical Plan: Continue follow-up with bariatric (3) DVT (deep venous thrombosis): Comment: bilateral leg swelling during Code(s): I82.409 - Acute embolism and thrombosis of unspecified deep veins of unspecified lower extremity Category: Medical Plan: Discussed about prevention (4) GERD (gastroesophageal reflux disease): Code(s): K21.9 - Gastro-esophageal reflux disease without esophagitis Category: Medical Plan: Avoid the foods that causes that usually spicy foods, tomato products, juices, coffee, soda and foods that your sensitive to. After eating do not lie down, allow 3-4 hours before in lie down. And keep the head of bed above 30 degrees to avoid the acid from going up. (5) Anemia: Code(s): D64.9 - Anemia, unspecified Category: Medical Plan: Patient follows up with Hematology-Oncology and continuing with iron and B12 (6) LFT elevation: Code(s): R79.89 - Other specified abnormal findings of blood chemistry Category: Medical Plan: Discussed LFT and workup (7) Breast cancer screening by mammogram: Code(s): Z12.31 - Encounter for screening mammogram for malignant neoplasm of breast Category: Medical Plan: Reminded about mammogram (8) Cervical cancer screening: Code(s): Z12.4 - Encounter for screening for malignant neoplasm of cervix Category: Medical Plan History of Present Illness The patient is a 49-year-old female presenting for a wellness visit and management of chronic conditions. She has a history of obesity and underwent gastric bypass surgery, which has been effective in weight management. The patient continues to see bariatrics for weight management. The patient has a history of deep vein thrombosis (DVT) that initially started in the right leg and progressed to bilateral involvement, attributed to and possibly control use. She is not currently on anticoagulation therapy. The patient has been diagnosed with iron deficiency anemia and vitamin B12 deficiency, for which she receives monthly B12 injections. Her last blood work showed normal blood counts, but she had elevated liver function tests. The patient reports a history of menorrhagia, which may have contributed to her anemia. She is experiencing menopausal symptoms, including hot flashes, and has not menstruated since the age of 42. Her family history is significant for various cancers, including colon, pancreatic, breast, and lymphoma. 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 - Exercise: Uses a treadmill in the office, attends gym when possible - Substance Use: Consumes alcohol occasionally, denies smoking and recreational drug use except for occasional gummies for sleep - Nutrition: Attempts to maintain a healthy diet, reports challenges due to work schedule Review of Systems - Cardiovascular: Denies chest pain or palpitations - Respiratory: Denies dyspnea or cough - Gastrointestinal: Reports history of heartburn, denies ulcers - Neurological: Reports leg cramps at night, denies seizures - Endocrine: Reports hot flashes, denies thyroid problems - Hematologic: Reports history of anemia Physical Exam General: Cooperative, healthy appearing, comfortable, no acute distress and well developed Orientation: Patient oriented x3 Limitations: No limitations Head: Normal to inspection Ears: Hearing grossly normal bilaterally Nose: Normal external nose present Face and sinus: Normal facial exam Eyes: Appearance normal, both eyes and all related structures Neck: Normal visual inspection and Yes full ROM Respiratory: Normal respiratory effort and able to speak in complete sentences. Clear to auscultation bilaterally Cardiovascular: Regular rate and rhythm. Normal S1 and S2 GI: Normal to inspection. Soft to palpation and nontender Skin: No rashes or lesions noted Neuro: Patient oriented x3 Extremities: Normal to inspection Results - Labs: Normal blood count, elevated liver function tests - Tests: Mammogram and colonoscopy due for screening Plan The patient will continue with her current bariatric management for obesity and is advised to maintain a healthy diet and exercise routine. For her history of DVT, no anticoagulation is currently required, but she should remain vigilant for any symptoms of recurrence. Her iron deficiency anemia and vitamin deficiency are being managed with monthly injections, and her blood counts will be monitored regularly. Due to elevated liver function tests, an ultrasound and hepatitis profile have been ordered to investigate further. Preventative care measures include scheduling a mammogram, colonoscopy, and Pap smear, given her family history of cancer. 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 Patient was informed and verbally consented to the use of an ambient scribe for clinic note documentation during this visit. Discussion Notes During the visit, we discussed the management of the patient's obesity through continued bariatric care and lifestyle modifications, emphasizing the importance of diet and exercise. We reviewed her history of DVT and determined that no anticoagulation is necessary at this time, but she should monitor for any signs of recurrence. Her anemia management includes monthly B12 injections, and we will continue to monitor her blood counts. Given the elevated liver function tests, I have ordered an ultrasound and hepatitis profile to further evaluate the cause. Preventative care was addressed, including the need for a mammogram, colonoscopy, and Pap smear, especially considering her family history of cancer. 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 Patient Instructions - Continue with bariatric management and maintain a healthy diet and exercise routine. - Monitor for any symptoms of DVT recurrence and seek medical attention if they occur. - Attend scheduled appointments for B12 injections and follow up on blood work results. - Complete the ultrasound and hepatitis profile as ordered. - Schedule and attend mammogram, colonoscopy, and Pap smear appointments. 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 Orders: Orders T Spot TB Today R79.89 - Other specified abnormal findings of blood chemistry Magnesium Today R79.89 - Other specified abnormal findings of blood chemistry MM tomosynthesis screening BI Today Z12.31 - Encounter for screening mammogram for malignant neoplasm of breast US abdomen complete Today R79.89 - Other specified abnormal findings of blood chemistry Hepatitis B,C Profile Today R79. - Other specified abnormal findings of blood chemistry Comprehensive Met. 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
[2024-09-25 13:16] VITALS: BP 126/82; PULSE 78; RESP 18; TEMP 36.1; O2SAT 98; BMI 39.4
--- OUTSIDE RECORDS SUMMARY | 2024-09-25 13:19 | XMS_ITS | Patient Health Record ---
Author Organization [facility] Address [address] [place] [address] Support Name Relationship Address Phone HANSEL FAM Guarantor Unknown Reason For Referral No Information Problems Problem Type SNOMED Code ICD Code Onset Dates Problem Status W/U Status Risk Notes Problem Gynecological examination normal (949436222691736) Routine gynecological examination (V72.31) Active confirmed Major Problem Dietary management surveillance (846940628) Dietary surveillance and counseling (V65.3) Active confirmed Diag Problem Exercise counseling (V65.41) Active confirmed Diag Plan Of Treatment No Information Insurance Providers Payer Name Payer Address Payer Phone Subscriber Number Group Number Insured Name Patient Relationship to Insured Coverage Start Date Coverage End Date [facility] [address] [place] [address] [id number] HANSEL FOX Self - patient is the insured
--- OUTSIDE RECORDS SUMMARY | 2024-09-25 13:19 | XMS_ITS | Patient Health Record ---
Author Organization [facility] Address [address] [place] [address] Care Team Providers Care Digestion Operator Name Role Phone Charisse Beltran Primary Care Provider Ruiz Camacho Unavailable [phone] Dawood Rich Unavailable Unavailable Allergies Allergen (clinical drug ingredient) Drug/Non Drug Allergy documented on EMR Reaction Allergy Type Onset Date Status doxycycline Doxycycline Unknown Drug Allergy Act christy Latex Latex Unknown Allergy Active Reason For Referral No Information Medications Medication SIG (Take, Route, Frequency, Duration) Notes Start Date End Date Status Venofer 20 MG/ML 1 Intravenous Yearly Recieves once a year infusion Active Cyanocobalamin 1000 MCG/ML 1 Injection Monthly Active Vitamin D Active Immunizations Vaccine Route Administration Date Status Comme nts Influenza Unknown 04/27/2022 Refused Social History Tobacco Use: Social History Observation Description Date Details (start date - stop date) Never Smoker NA - NA Tobacco Use/Smoking Question Answer Notes Patient is a nonsmoker Alcohol Screen Question Answer Notes Did you have a drink contain ing alcohol in the past year? Yes How often did you have a dri nk containing alcohol in the past year? Never (0 point) How many drinks did you have on a typical day when you were drinking in the past year? 1 or 2 drinks (0 point) How often did you have 6 or more drinks on one occasion in the past year? Never (0 point) Points 0 Interpretation Negative Problems Problem Type SNOMED Code ICD Code Onset Dates Problem Status W/U Status Risk Notes Problem 432352904 Colon cancer screening (Z12.11) Active confirmed Problem Diverticulosis o f large intestine without perforation or abscess without bleeding (K57.30) Active confirmed Problem 056629727378576 Preprocedural examination (Z01.818) Active confirmed Problem 640044196 Family history o f colon cancer (Z80.0) Active confirmed Plan Of Treatment Future Test Test Name Order Date COLONOSCOPY 04/27/2022 Insurance Providers Payer Name Payer Address Payer Phone Subscriber Number Group Number Insured Name Patient Relationship to Insured Coverage Start Date Coverage End Date [employer] [address] [address] [place] [address] [id number] HASNEL FOX Self - patient is the insured Medical (General) History Medical History History ICD Code Denies [place],DM,CVA,Lung disease,renal dise ase Arthritis Anemia in relation to her pr evious gastric bypass for which she receives B12 injections monthly and a yearly iron infusion with Dr. Rich Surgical History Surgery Date(Month/Year) C-sections x 2 9824-0964 Tubal ligation 2002 Gastric bypass 2003 Cholecystectomy 2019 Breast reduction 2014
== END 2024-09-25 14:14 | disposition home or self-care (01) ==
LOC: HO.HMCH 13:07
PROVIDERS: Visit Provider Internal Medicine
DX: I82.409 Acute embolism and thrombosis of unspecified deep veins of unspecified lower extremity (principal); E66.9 Obesity, unspecified; Z98.84 Bariatric surgery status; Z68.39 Body mass index [BMI] 39.0-39.9, adult; K21.9 Gastro-esophageal reflux disease without esophagitis; D64.9 Anemia, unspecified; R79.89 Other specified abnormal findings of blood chemistry; Z12.31 Encounter for screening mammogram for malignant neoplasm of breast

== ENCOUNTER → 2024-09-25 13:07 | Outpatient (BNVA) | payer OTHER, SELFPAY | PROVIDERS: Visit Provider Internal Medicine | DX: K21.9 Gastro-esophageal reflux disease without esophagitis (principal); E66.9 Obesity, unspecified; I82.409 Acute embolism and thrombosis of unspecified deep veins of unspecified lower extremity; D64.9 Anemia, unspecified; R79.89 Other specified abnormal findings of blood chemistry; Z98.84 Bariatric surgery status; Z68.39 Body mass index [BMI] 39.0-39.9, adult | CPT/HCPCS: 96127 ==

== ENCOUNTER 2024-09-30 08:31 | Outpatient (REF) | payer OTHER, SELFPAY ==
--- OUTSIDE RECORDS SUMMARY | 2024-09-30 08:42 | XMS_ITS | Patient Health Record ---
Author Organization [facility] Address [address] [place] [address] Care Team Providers Care Tire Mounter Name Role Phone Charisse Beltran Primary Care Provider Ruiz Camacho Unavailable [phone] Dawood Rich Unavailable Unavailable Allergies Allergen (clinical [...] Problem Status W/U Status Risk Notes Problem 020226658 Colon cancer screening (Z12.11) Active confirmed Problem Diverticular disease of colon (867517727) Diverticulosis of large intestine without perforation or abscess without bleeding (K57.30) Active confirmed Problem 707791957040625 Preprocedural examination (Z01.818) Active confirmed Problem 893470287 Family history o f colon cancer (Z80.0) Active confirmed Plan Of Treatment Future Test Test Name Order Date COLONOSCOPY 04/27/2022 Insurance Providers Payer Name Payer Address Payer Phone Subscriber Number Group Number Insured Name Patient Relationship to Insured Coverage Start Date Coverage End Date [employer] [place] [address] [address] [place] [address] [id number] HANSEL FOX Self - patient is the insured Medical (General) History Medical History History ICD Code Denies [place],DM,CVA,Lung disease,renal dise ase Arthritis Anemia in relation to her pr evious gastric bypass for which she receives B12 injections monthly and a yearly iron infusion with Dr. Rich Surgical History Surgery Date(Month/Year) C-sections x 2 9288-4258 Tubal ligation 2001 Gastric bypass 2003 Cholecystectomy 2018 Breast reduction 2014
--- OUTSIDE RECORDS SUMMARY | 2024-09-30 08:42 | XMS_ITS | Patient Health Record ---
Author Organization [facility] Address [address] [place] [address] Support Name Relationship Address Phone HANSEL FAM Guarantor Unknown [phone] Reason For Referral No Information Problems Problem Type SNOMED Code ICD Code Onset Dates Problem Status W/U Status Risk Notes Problem Routine gynecological examination (V72.31) Active confirmed Major Problem Dietary management surveillance (921232638) Dietary surveillance and counseling (V65.3) Active confirmed Diag Problem Exercises teaching, guidance, and counseling (514718621) Exercise counseling (V65.41) Active confirmed Diag Plan Of Treatment No Information Insurance Providers Payer Name Payer Address Payer Phone Subscriber Number Group Number Insured Name Patient Relationship to Insured Coverage Start Date Coverage End Date [facility] [address] [place] [address] [phone] [id number] HANSEL FOX Self - patient is the insured
[2024-09-30 09:37] LABS: Alanine Aminotransferase 51 U/L (0-31); Albumin Level 4.3 g/dL (3.5-5.0); Alkaline Phosphatase 124 U/L (39-117); Anion Gap 11 (12-20); Aspartate Amino Transferase 27 U/L (5-31); Blood Urea Nitrogen 10 mg/dL (9-16); Calcium 9.3 mg/dL (8.4-10.2); Carbon Dioxide 29 mmol/L (22-29); Chloride 107 mmol/L (96-108); Estimated Glomerular Filt Rate > 60; Magnesium 2.0 mg/dL (1.6-2.6); Potassium 4.2 mmol/L (3.3-5.1); Sodium 143 mmol/L (135-145); Total Protein 7.7 g/dL (6.5-8.0)
[2024-09-30 09:59] LABS: HBS Num1 105.94 mIU/mL (0-7.99); HBc Num1 0.08 S/CO (0.00-0.79); HBsAGNum1 0.44 S/CO (0.00-0.99); Hepatitis B Surface Antigen Negative (Negative); ~HepC Num1 0.14 S/CO (0.00-0.79); ~Hepatitis B Surface Antibody REACTIVE (Nonreactive); ~Hepatitis C Antibody Nonreactive (Nonreactive)
[2024-10-03 07:03] LABS: TS Negative Control Passed; TS Panel A 0; TS Panel B 0; TS Positive Control Passed; TSpotTB Negative (Negative)
== END 2024-09-30 08:32 | disposition home or self-care (01) ==
LOC: HO.LAB 08:31
PROVIDERS: PCP Internal Medicine; Visit Provider Internal Medicine
DX: Z11.1 Encounter for screening for respiratory tuberculosis (principal); Z11.59 Encounter for screening for other viral diseases; R79.89 Other specified abnormal findings of blood chemistry
CPT/HCPCS: 36415; 80053; 83735; 86481; 86704; 86706; 86803; 87340

== ENCOUNTER 2024-10-09 01:41 | Emergency (ER) | payer OTHER, SELFPAY ==
[2024-10-09] VITALS (9 sets, daily range): BP systolic 92–158; BP diastolic 52–88; PULSE 69–95; RESP 16–30; TEMP 36.5–37.1; O2SAT 97–100; BMI 38.4
--- NOTE | 2024-10-09 | ECG_ITS ---
Test Reason : EPIGASTIC PAIN Blood Pressure : */* mmHG Vent. Rate : 77 BPM Atrial Rate : 77 BPM P-R Int : 150 ms QRS Dur : 76 ms QT Int : 424 ms P-R-T Axes : 64 30 37 degrees QTcB Int : 479 ms Normal sinus rhythm Possible Left atrial enlargement Nonspecific ST and T wave abnormality Abnormal ECG When compared with ECG of 08-Dec-2016 05:58, QT has lengthened Referred By: Generic ED Physician Electronically Signed By: Tushar Goncalves
--- NOTE | ~2024-10-09 | XR_ITS ---
CLINICAL HISTORY: severe abd pain, r o free air under diaphragm 1 view chest x-ray. Comparison: None provided. Findings: No consolidation, pneumothorax, or effusion. Heart size normal. No free intraperitoneal air appreciated. IVC filter visualized extending toward the inferior cavoatrial junction. Multiple surgical clips are present over the left upper abdominal quadrant. Impression: 1. No acute cardiopulmonary process. No focal pulmonary consolidation. No free intraperitoneal air appreciated. 2. IVC filter visualized extending toward the inferior cavoatrial junction. Clinical correlation is advised. This document has been electronically signed by: Marcos Montana MD on 10/09/2024 03:52:06
--- NOTE | ~2024-10-09 | CT_ITS ---
CLINICAL HISTORY: CP, SOB, hx DVTs no thinners CT angiography chest with contrast. 3D Postprocessing. Comparison: None provided Findings: The heart size is normal. RV/LV ratio is normal. Unremarkable thoracic aorta and great vessels. No aneurysm. No pulmonary artery filling defects. The visualized thyroid demonstrates multiple small nodules. Lungs demonstrate dependent changes. IVC filter noted with tip abutting the right atrium. Postsurgical changes along the stomach. No acute osseous findings. Impression: No evidence of pulmonary embolism or heart strain. The IVC filter is in atypically cephalad positioning with the tip abutting the right atrium. Unclear if this reflects migration or postprocedural positioning. Correlation with any available outside imaging. This document has been electronically signed by: Jose Angel Batista MD on 10/09/2024 07:45:11
--- NOTE | ~2024-10-09 | CT_ITS ---
CLINICAL HISTORY: epigastric pain, hx gastric bypsass, DVTs CT abdomen and pelvis with contrast Comparison: CT - CT ABDOMEN PELVIS W IV CON - 10/09/24 02:40 EDT Findings: No consolidation or effusion. The gallbladder is surgically absent. No splenomegaly. Multiple low-attenuation lesions are identified within the spleen, measuring up to 2.2 cm in maximum axial dimension. The liver appears normal in contour. Mild asymmetric enlargement of the right hepatic lobe which may represent a Esteban's lobe or mild hepatomegaly. The pancreas and bilateral adrenal glands are within normal limits for appearance. No hydronephrosis or hydroureter. No bowel obstruction, pneumoperitoneum, or pneumatosis. There are postsurgical changes of the bowel suggesting gastric bypass. Evaluation of the stomach is limited due to gastric underdistention. Moderate colonic stool burden. Mild bowel wall thickening present at the ascending colon. The ascending colon is underdistended. There is minimal free fluid at the right hemiabdomen, visualized on axial image number 43 of series 3. IVC filter visualized of the level of the intrahepatic/suprahepatic IVC, extending toward the inferior cavoatrial junction. Pelvic contents unremarkable. No bladder wall thickening. Minimal free fluid identified within the pelvis. Normal appendix. No acute fracture visualized. IMPRESSION: 1. IVC filter visualized of the intrahepatic/suprahepatic IVC, extending toward the inferior cavoatrial junction. This is an atypical location. Recommend clinical correlation to confirm appropriate positioning. 2. Mild bowel wall thickening present at the ascending colon. This may be related to bowel underdistention. Mild colitis is not excluded. There is minimal nonspecific free fluid within the adjacent right hemiabdomen as well as minimal free fluid within the pelvis. 3. Multiple nonspecific low-attenuation lesions identified within the spleen, measuring up to 2.2 cm in maximum axial dimension. These findings may be seen in the setting of infection or malignancy/metastatic disease. 4. Moderate colonic stool burden. No bowel obstruction.. This document has been electronically signed by: Marcos Montana MD on 10/09/2024 04:18:06
[2024-10-09 01:58] LABS: Hematocrit 36.6 % (37.0-47.0); Hemoglobin 12.3 g/dl (12.0-16.0); Imm Gran Abs Auto 0.03 X10*3/uL (0.00-0.03); Imm Gran Pct Auto 0.2 % (0.0-0.4); MANUAL DIFF FLAG SCAN; Mean Corpuscular HGB Conc 33.6 g/dl (31.0-35.0); Mean Corpuscular Hemoglobin 28.6 pg (27.0-33.0); Mean Corpuscular Volume 85.1 fL (80.0-98.0); NRBC Abs Auto 0.000 X10*3/uL (0.0-0.012); NRBC Pct Auto 0.0 /100WBC (0.0-0.2); Platelet Count 254 X10*3/uL (160-400); Red Blood Count 4.30 X10*6/uL (4.20-5.50); SCAN SMEAR FLAG 1; White Blood Count 14.9 X10*3/uL (4.8-10.8)
[2024-10-09 01:59] LABS: Lymphocytes Absolute Auto 8.8 X10*3/uL (1.2-4.9)
--- NOTE | 2024-10-09 02:07 | ED_ITS ---
HPI - Abdominal Pain General Chief Complaint: Abdominal Pain Stated Complaint: Upper ABD Pain Time Seen by Provider: 10/09/24 01:55 Source: patient and EMS Mode of arrival: EMS Limitations: no limitations History of Present Illness ED Provider: Dr. Hazel Rainey HPI narrative: Patient comes to the emergency room complaining of sudden abdominal pain in the epigastric area. Patient states that she was talking on the phone, states that initially she started having a lot of pain in her left arm the radiating towards her epigastric area. Patient denies nausea vomiting or diarrhea. Patient complaining of intense epigastric pain. To patient's knowledge, she does not have any history of cardiac issues, no history of kidney stones. Patient had a gastric bypass done in [place] in the early Related Data Home Medications ?Medication ?Instructions ?Recorded ?Confirmed vitamin [id number] B1 1,000 1 ml IM QMONTH 12/15/19 0 09/25/24 mcg-100 mg/mL injection solution [id number] 45 mg-folic 1 cap PO DAILY 04/07/1709/25/24 acid 800 mcg-vit K 120 mcg capsule (Bariatric Multivitamins) omeprazole 20 mg capsule,delayed 20 mg PO DAILY PRN Ac id Reflux 12/23/21 09/25/24 release Previous Rx's ?Medication ?Instructions ?Recorded cholecalciferol (vitamin D3) 125 250 mcg (2 x 125 mcg (5,000 unit)) 07/03/23 mcg (5,000 unit) capsule PO DAILY #60 caps tirzepatide (weight loss) 2.5 2.5 mg (0.5 mL) subcut Q WEEK #2 mL 09/25/24 mg/0.5 mL subcutaneous pen injector (Zepbound) hyoscyamine sulfate 0.125 mg tablet 0.125 mg PO QID LA N dyspepsia #10 10/09/24 tabs Allergies Allergy/AdvReac Type Severity Reaction Status Date / Time latex (LATEX) Allergy Mild RASH Verified 10/09/24 01:46 doxycycline Allergy Unknown Verified 10/09/24 01:46 Review of Systems Review of Systems Constitutional : No Weight loss, No Fever, No Chills, No Night Sweats, No Fatigue, No Malaise ENT/Mouth : No Hearing loss, No Ear Pain, No Nasal Congestion, No Sinus Pain, No Hoarseness, No sore throat, No Rhinorrhea, No Swallowing Difficulty Eyes: No Eye Pain, No Swelling, No Redness, No Foreign Body, No Discharge, No Vision Changes Cardiovascular : No Chest Pain, No SOB, No Dyspnea on Exertion, No Orthopnea, No Edema, No Palpitations Respiratory : No Cough, No Sputum, No Wheezing, No Smoke Exposure, No Dyspnea Gastrointestinal : Denies nausea vomiting diarrhea, complaining of severe epigastric pain that radiated from the left shoulder Genitourinary : no irregular bleeding, No Dysuria, No Urinary Frequency, No Hematuria, No Urinary Incontinence, No Urgency, No Flank Pain, No Urinary Flow Changes, No Hesitancy Musculoskeletal : No joint pain, No Myalgias, No Joint Swelling Skin : No Skin Lesions, No rash Neuro : No Weakness, No Numbness, No Paresthesias, No Loss of Consciousness, No Dizziness, No Headache Psych : No Anxiety/Panic, No Depression, No SI/HI/AH/VH, No Social Issues, Heme/Lymph: No Bruising, No Bleeding,No Lymphadenopathy Endocrine : No Polyuria, No Polydipsia, No Temperature Intolerance [facility] Past Medical History Medical History Colon cancer screening Vitamin A deficiency Excess skin of arm Obesity (BMI 30-39.9) Factor V Leiden mutation History of DVT (deep vein thrombosis) Iron deficiency anemia B12 deficiency Anemia Surgical History Hx of tubal ligation Hx of section Hx of cholecystectomy Hx of bilateral breast reduction surgery H/O gastric bypass Family History Family History (Updated 09/25/24 @ 13:56 by Gal Galeana MD) Father Colon cancer Mother HTN (hypertension) Brother Colon cancer Sister No problems noted. Paternal Uncle Pancreas cancer Paternal Aunt Breast cancer Maternal Aunt Lymphoma Maternal Grandfather Myocardial infarct Social History Social History (Updated 09/25/24 @ 13:49 by Gal Galeana MD) Household Members: Spouse and Children Housing: House Are you a primary career representative to a significant other at home: No Do you presently have visiting nurse or other home services: No Alcohol intake: current Alcohol intake frequency: a few times a month Comment: 2 glasses of win QOD Patient Tobacco Use Status: Never used Tobacco Smoked in Last 30 Days: No e-Cigarette/Vaping Use: Never Used Advance Directives: No Advance Directives Information Provided: Yes service: No Current occupational status: employed Current occupation: [employer] patient access Sexual orientation: Straight/Heterosexual Gender identity: Female Cognitive needs: No Hearing needs: No Vision needs: No Physical Exam ED Exam Exam: Appearance: Alert. Oriented X3. Patient looks very uncomfortable Eyes: Pupils equal, round and reactive to light. ENT: Pharynx normal. Neck: Normal inspection. Neck supple. No lymph nodes noted. No crepitus CVS: Normal heart rate and rhythm. Pulses normal. Normal S1 and S2 Respiratory: No respiratory distress. Breath sounds normal. No Wheezing. No rales Abdomen: Soft , tenderness to palpation in the epigastric area, left upper quadrant, left lower quadrant and left flank Skin: Skin warm and dry. Normal skin color. Normal skin turgor. Extremities: No lower extremity edema. No Lacerations. No Rash Neuro: Oriented X 3. No motor deficit. No sensory deficit. Moving all extremities. No slurred speech. CN 2 through 12 grossly intact Psych: Very anxious Vital Signs: Vital Signs - 24 hr 10/09/24 01:45 10/09/24 02:00 10/09/24 04:00 Temperature 97.7 F 97.7 F 97.8 F Pulse Rate 69 69 83 Respiratory Rate 30 H 30 H 16 Blood Pressure 109/88 109/88 131/77 Pulse Oximetry 100 100 97 Oxygen Delivery Method Room Air Room Air Room Air 10/09/24 06:00 10/09/24 07:15 Temperature 98.7 F Pulse Rate 86 95 Respiratory Rate 16 Blood Pressure 110/71 94/54 L Pulse Oximetry 99 98 Oxygen Delivery Method Room Air Room Air BMI result Body Mass Index 38.4 Course Course Course Narrative: Patient complaining of chest pain and abdominal pain, given patient's past medical history of DVTs and gastric bypass, we will order a CT scan of the abdomen and also CT for pulmonary embolism rule out Patient receiving IV fluids and pain medication Sonja Medical Decision Making Medical Decision Making [facility] Narrative: My interpretation of labs: Patient's white blood cell count 14.9, no significant abnormality in patient's chemistry, LFTs slightly elevated, troponin x2 negative CT scan of the chest is negative for pulmonary embolism Overall, patient feels much better. Vitals within normal limits Patient ready for discharge, Differential Diagnosis Differential Diagnoses: The differential diagnosis associated with the presentation includes (Small bowel obstruction, perforation, pancreatitis, cholecystitis) Admission/Observation Consideration of admission/observation: Escalation of care including admission/observation considered (Given patient's past surgical history and presentation, observation was considered) Lab Data MDM Lab Attestation statement: I reviewed the patient's lab results. 10/09/24 01:54 10/09/24 01:54 Labs: Lab Results 10/09/24 10/09/24 10/09/24 Range/Units 01:54 01:55 02:31 WBC 14.9 H (4.8-10.8) X10*3/uL RBC 4.30 (4.20-5.50) X10*6/uL Hgb 12.3 (12.0-16.0) g/dl Hct 36.6 L (37.0-47.0) % MCV 85.1 (80.0-98.0) fL MCH 28.6 (27.0-33.0) pg MCHC 33.6 (31.0-35.0) g/dl RDW 13.1 (11.0-16.0) % Plt Count 254 (160-400) X10*3/uL MPV 11.6 (9.4-12.3) fL Immature Gran % (Auto) 0.2 (0.0-0.4) % Neut % (Auto) 30.7 L (45-73) % Lymph % (Auto) 59.1 H (20-40) % Whitfield % (Auto) 8.6 (2-11) % Eos % (Auto) 1.1 (0-4) % Baso % (Auto) 0.3 (0-2) % Lymph # (Auto) 8.8 H (1.2-4.9) X10*3/uL Whitfield # (Auto) 1.3 H (0.1-1.2) X10*3/uL Eos # (Auto) 0.2 (0.0-0.4) X10*3/uL Baso # (Auto) 0.1 (0.0-0.2) X10*3/uL Abs Immat Gran (auto) 0.03 (0.00-0.03) X10*3/uL Absolute Neuts (auto) 4.6 (2.0-8.3) x10*3/uL Absolute Nucleated RBC 0.000 (0.0-0.012) X10*3/uL Nucleated RBC % (auto) 0.0 (0.0-0.2) /100WBC Smear Tech's Comments VERIFIED PT 11.6 (10.9-12.4) SEC INR 1.0 (0.9-1.1) Sodium 140 Cancelled (135-145) mmol/L Potassium 3.3 D Cancelled (3.3-5.1) mmol/L Chloride 108 Cancelled (96-108) mmol/L Carbon Dioxide 17 L Cancelled (22-29) mmol/L Anion Gap 18 Cancelled (12-20) BUN 14 Cancelled (9-16) mg/dL Creatinine 0.80 Cancelled (0.5-1.4) mg/dL Estim Creat Clear Calc 93.5 Cancelled Estimated GFR > 60 Cancelled Random Glucose Cancelled Fasting Glucose 138 H (60-99) mg/dL Calcium 8.6 D Cancelled (8.4-10.2) mg/dL Total Bilirubin 0.3 Cancelled (0.0-1.0) mg/dL Direct Bilirubin 0.1 Cancelled (0.0-0.5) mg/dL AST 39 H Cancelled (5-31) U/L ALT 53 H Cancelled (0-31) U/L Alkaline Phosphatase 124 H Cancelled (39-117) U/L Troponin I High Sens 7.8 (<3.5-17.0) ng/L Total Protein 7.7 Cancelled (6.5-8.0) g/dL Albumin 4.2 Cancelled (3.5-5.0) g/dL Lipase 43 (8-78) U/L Independent Interpretation I performed an independent interpretation of an: Plain X-Ray and CT Scan Radiology Impression Discussion of test interpretation with radiology: I have reviewed the radiologist's reading. Radiologist Impression: The heart size is normal. RV/LV ratio is normal. Unremarkable thoracic aorta and great vessels. No aneurysm. No pulmonary artery filling defects. The visualized thyroid demonstrates multiple small nodules. Lungs demonstrate dependent changes. IVC filter noted with tip abutting the right atrium. Postsurgical changes along the stomach. No acute osseous findings. Medications Administered Discontinued Medications Generic Name Dose Route Start Last Admin Trade Name Freq PRN Reason Stop Dose Admin Sodium Chloride 1,000 mls @ 999 mls/hr 10/09/24 02:00 10/09/24 05:14 Ns IVCONT 10/09/24 03:00 Infused .Q1H1M ONE Infusion Sodium Chloride 1,000 mls @ 999 mls/hr 10/09/24 04:36 10/09/24 06:46 Ns IVCONT 10/09/24 05:36 Infused .Q1H1M ONE Infusion Iohexol 85 ml 10/09/24 03:01 10/09/24 03:02 Iohexol 350 Mg/Ml 100 Ml Infus..Btl IV 10/09/24 03:02 85 ml ONCE ONE Administration Iohexol 75 ml 10/09/24 06:14 10/09/24 06:15 Iohexol 350 Mg/Ml 100 Ml Infus..Btl IV 10/09/24 06:15 75 ml ONCE ONE Administration Morphine Sulfate 4 mg 10/09/24 02:05 10/09/24 02:08 Morphine Sulfate 4 Mg/Ml Cartridge IVPUSH 10/09/24 02:06 4 mg ONCE ONE Administration Protocol Morphine Sulfate 2 mg 10/09/24 04:35 10/09/24 05:32 Morphine Sulfate 2 Mg/Ml Cartridge IVPUSH 10/09/24 04:36 2 mg ONCE ONE Administration Protocol Ondansetron HCl 4 mg 10/09/24 02:00 10/09/24 02:08 Ondansetron Hcl 4 Mg/2 Ml Vial IVPUSH 10/09/24 02:01 4 mg ONCE ONE Administration Critical Care Time Critical Care Time Critical Care Time: Yes Total Critical Care Time: 45 Attestation: I have personally provided critical care time. Time includes review of lab data, radiology results, discussion with consultants, and monitoring for potential decompensation. Intervention performed as documented. Discharge Plan Discharge Clinical Impression: Abdominal pain, Atypical chest pain Patient Disposition: Home, Self-Care Instructions: Chest Pain (ED), Abdominal Pain (ED) Additional Instructions: Please follow-up with your primary care physician tomorrow. If you have any worsening or new symptoms, please return to the emergency room or call 911 Prescriptions: New hyoscyamine sulfate 0.125 mg tablet 0.125 mg PO QID PRN (Reason: dyspepsia) Qty: 10 0RF No Action omeprazole 20 mg capsule,delayed release(DR/EC) 20 mg PO DAILY PRN (Reason: Acid Reflux) cholecalciferol (vitamin D3) 125 mcg (5,000 unit) capsule 250 mcg PO DAILY Qty: 60 2RF vitamin [id number] B1 1,000-100 mg/mL solution 1 ml IM QMONTH Bariatric Multivitamins 45 mg iron- 800 mcg-120 mcg capsule 1 cap PO DAILY Zepbound 2.5 mg/0.5 mL pen injector 2.5 mg subcut QWEEK Qty: 2 2RF Rx Instructions: for 4 weeks Stand Alone Forms: Work/School Release Print Language: Gibraltarian
--- NOTE | 2024-10-09 02:17 | PC.NURSE ---
pt medicated per MAR.
[2024-10-09 02:24] LABS: Alanine Aminotransferase 53 U/L (0-31); Albumin Level 4.2 g/dL (3.5-5.0); Alkaline Phosphatase 124 U/L (39-117); Anion Gap 18 (12-20); Aspartate Amino Transferase 39 U/L (5-31); Blood Urea Nitrogen 14 mg/dL (9-16); Calcium 8.6 mg/dL (8.4-10.2); Carbon Dioxide 17 mmol/L (22-29); Chloride 108 mmol/L (96-108); Creatinine Clr Calc Pharmacy 93.5; Estimated Glomerular Filt Rate > 60; Lipase 43 U/L (8-78); Potassium 3.3 mmol/L (3.3-5.1); Sodium 140 mmol/L (135-145); Total Protein 7.7 g/dL (6.5-8.0)
[2024-10-09 02:28] LABS: Troponin-I High Sensitivity 7.8 ng/L (<3.5-17.0)
--- OUTSIDE RECORDS SUMMARY | 2024-10-09 02:47 | XMS_ITS | Patient Health Record ---
Author Organization [facility] Address [address] [place] [address] Support Name Relationship Address Phone HANSEL FAM Guarantor Unknown Reason For Referral No Information Problems Problem Type SNOMED Code ICD Code Onset Dates Problem Status W/U Status Risk Notes Problem Gynecological examination normal (640456583710312) Routine gynecological examination (V72.31) Active confirmed Major Problem Dietary management surveillance (256589260) Dietary surveillance and counseling (V65.3) Active confirmed Diag Problem Exercises teaching, guidance, and counseling (318565106) Exercise counseling (V65.41) Active confirmed Diag Plan Of Treatment No Information Insurance Providers Payer Name Payer Address Payer Phone Subscriber Number Group Number Insured Name Patient Relationship to Insured Coverage Start Date Coverage End Date [facility] [address] [place] [address] [id number] HANSEL FOX Self - patient is the insured
[2024-10-09 02:49] LABS: INTERNATIONAL NORM RATIO 1.0 (0.9-1.1); Prothrombin Time 11.6 SEC (10.9-12.4)
[2024-10-09] MEDS: iohexoL 350 MG/ML 100 ML INFUS..BTL 85 ML IV (03:02)
[2024-10-09] MEDS: iohexoL 350 MG/ML 100 ML INFUS..BTL 75 ML IV (06:15)
== END 2024-10-09 09:17 | disposition home or self-care (01) ==
PROVIDERS: Emergency Provider Emergency Medicine; PCP Internal Medicine
DX: R07.89 Other chest pain (principal); R10.13 Epigastric pain; R06.02 Shortness of breath; Z86.718 Personal history of other venous thrombosis and embolism
CPT/HCPCS: 36415; 71045; 71275; 74177; 80053; 82248; 83690; 84484; 85025; 85610; 93005; 96361; 96374; 96375; 96376; 99285; J2270; J2405; Q9967

== ENCOUNTER → 2024-10-09 01:57 | Outpatient (BNV) | payer OTHER, SELFPAY | PROVIDERS: Emergency Provider Emergency Medicine; Visit Provider Internal Medicine Cardiovascular Disease | DX: R94.31 Abnormal electrocardiogram [ECG] [EKG] (principal); R10.13 Epigastric pain | CPT/HCPCS: 93010 ==

== ENCOUNTER → 2024-10-09 02:06 | Outpatient (BNV) | payer OTHER, SELFPAY | PROVIDERS: Emergency Provider Emergency Medicine; Visit Provider Radiology Diagnostic Radiology | DX: R10.13 Epigastric pain (principal); R06.02 Shortness of breath; R07.9 Chest pain, unspecified; Z95.828 Presence of other vascular implants and grafts | CPT/HCPCS: 71045; 71275; 74177 ==

== ENCOUNTER 2024-10-17 08:17 | Outpatient (AMB) | payer OTHER, SELFPAY ==
--- NOTE | 2024-10-17 08:20 | A.OFFPC_ITS ---
Vital Signs 10/17/24 08:21 Height 5 ft 2 in Weight 212 lb 6 oz BMI 38.8 BP 136/66 Blood Pressure Location Lt brachial Position Sitting Pulse 76 Pulse Source Pulse Oximeter Temp 97.3 F Temp Source Temporal Artery Scan Pulse Oximetry (%) 98 Oxygen Delivery Method Room Air Intake Visit Reasons: [facility] Abdominal pain Allergies latex (LATEX) Allergy (Mild, Verified 10/17/24 08:24) RASH doxycycline Allergy (Verified 10/17/24 08:24) Unknown Tobacco use date assessed: 10/17/24 Dental Screening Dental Screen Date: 10/17/24 Did you have a dental visit in the last 12 months?: Yes Did you have a dental problem in the last 6 months where you did not have access to dental care?: No Was dental information given to patient?: Patient has dentist HPI HPI Comments History of Present Illness Details 49 y/o Female patient who presents to [facility] today for EDF. She was admitted at [facility] on 10/09 for an evaluation and treatment of Abdominal pain. She did have CT Scan Abdomen that was unremarkable. She does endorse drinking Mixed Drinks on Weekends and poor diet. Today feels much better just some mild tenderness around the Epigastric region. Denies nausea or vomiting. [facility] Medical History Colon cancer screening Vitamin A deficiency Excess skin of arm Obesity (BMI 30-39.9) Factor V Leiden mutation History of DVT (deep vein thrombosis) Iron deficiency anemia B12 deficiency Anemia Surgical History Hx of tubal ligation Hx of section Hx of cholecystectomy Hx of bilateral breast reduction surgery H/O gastric bypass Family History Father Colon cancer Mother HTN (hypertension) Brother Colon cancer Sister No problems noted. Paternal Uncle Pancreas cancer Paternal Aunt Breast cancer Maternal Aunt Lymphoma Maternal Grandfather Myocardial infarct Social History Household Members: Spouse and Children Housing: House Are you a primary reproductive healthcare assistant to a significant other at home: No Do you presently have visiting nurse or other home services: No Alcohol intake: current Alcohol intake frequency: a few times a month Comment: 2 glasses of win QOD Patient Tobacco Use Status: Never used Tobacco e-Cigarette/Vaping Use: Never Used service: No Current occupational status: employed Current occupation: [facility] patient access Sexual orientation: Straight/Heterosexual Gender identity: Female Cognitive needs: No Hearing needs: No Vision needs: No Female Reproductive History Menstrual Age of Menarche: 12 Questionnaire PHQ-9 Over the last 2 weeks, how often have you been bothered by any of the following problems? 1. Little interest or pleasure in doing things: not at all 2. Feeling down, depressed, or hopeless: not at all 3. Trouble falling or staying asleep, or sleeping too much: several days 4. Feeling tired or having little energy: several days 5. Poor appetite or overeating: not at all 6. Feeling bad about yourself - or that you are a failure or have let yourself or your family down: not at all 7. Trouble concentrating on things, such as reading the newspaper or watching television: not at all 8. Moving or speaking so slowly that other people could have noticed. Or the opposite - being so fidgety or restless that you have been moving around a lot more than usual: not at all 9. Thoughts that you would be better off or of hurting yourself in some way: not at all Total score: 2 Depression Screening Interpretation: Negative Depression Screening Done: Yes Source: Developed by Drs. Ruiz Brambila, Lissett Donnelly, Sandeep Welsh and colleagues, with an educational juan carlos from [employer]. Thrive Questionnaire Date Thrive assessed: 09/25/24 I am a: Patient What is your living situation today?: I have a steady place to live Within the past 12 months, did the food you bought not last and you didn't have the money to get more?: Never true Within the past 12 months, did you worry whether your food would run out before you got money to buy more?: Never true Do you have trouble paying for medicines?: No Do you have trouble getting transportation to medical appointments?: No Do you have trouble paying your heating and electricity bill?: No Do you have trouble taking care of your child, family member or friend?: No Do you have trouble with day-to-day activities such as bathing, preparing meals, shopping, managing finances, etc.?: No Are you currently unemployed and looking for a job?: No Are you interested in more education?: No Please select the resources that you would like help with: None Currently or been in a relationship where the following occur: No concerns reported THRIVE Score: 0 AUDIT C Alcohol Use Questionnaire (AUDIT-C) 1. How often do you have a drink containing alcohol?: 2-4 times a month 2. How many drinks containing alcohol do you have on a typical day when you are drinking?: 1 or 2 3. How often do you have six or more drinks on one occasion?: Less than monthly Total Score: 3 GABY-7 AMB Questionnaire GABY-7 Date GABY - 7 assessed: 09/25/24 Feeling nervous, anxious, or on edge: 0 = Not at all Not being able to stop or control worryin = Not at all Worrying too much about different things: 0 = Not at all Trouble relaxin = Several days Being so restless that it is hard to sit still: 0 = Not at all Becoming easily annoyed or irritable: 0 = Not at all Feeling afraid as if something awful might happen: 0 = Not at all Total GABY-7 score (0-4 normal; 5-9 mild; 10-14 moderate; 15-21 severe): 1 Source: Developed by Drs. Ruiz Brambila, Lissett Donnelly, Sandeep Welsh and colleagues, with an educational juan carlos from [employer]. Review of Systems Const All systems reviewed & are unremarkable except as noted in HPI and below Physical exam (Primary Care) Vital Signs: Last Vital Signs Temp 97.3 F 10/17/24 08:21 Pulse 76 10/17/24 08:21 BP 136/66 10/17/24 08:21 Pulse Ox 98 10/17/24 08:21 Oxygen Delivery Method Room Air 10/17/24 08:21 BMI result Body Mass Index 38.8 Tobacco/Smoking Status: Tobacco use Status Tobacco use date assessed 10/17/24 10/17/24 08:25 Patient Tobacco Use Status Never used Tobacco 10/17/24 08:25 e-Cigarette/Vaping Use Never Used 10/17/24 08:25 PHQ-9: PHQ-9 Score PHQ-9: Total score 2 10/17/24 08:25 Depression Screening Interpretation: Negative Thrive Assessment: Date of Thrive Assessment Date Thrive assessed 09/25/24 10/17/24 08:25 Currently or been in a relationship where the following occur: No concerns reported Const General: no acute distress Nutritional Appearance: obese Orientation/consciousness: patient oriented x3 Resp Effort & Inspection: normal respiratory effort Cardio Heart sounds: S1 normal heart sound present and S2 normal heart sound present GI Inspection: Yes Abdominal panniculus present and Yes obesity Palpation (GI): Soft to palpation, not firm, Tenderness to palpation present (GI) in the epigastrum, no guarding, not rigid and No hepatosplenomegaly present Neuro General: patient oriented x3, gait normal and moves all extremities Coding Level of Care Code Est Pt Level 4 (85962) Diagnoses Epigastric abdominal pain R10.13 Time Spent (min) 20 Assessment & Plan Assessment & Plan (1) Epigastric abdominal pain: Code(s): R10.13 - Epigastric pain Category: Medical Plan: Refilled Hyoscyamine Avoid Alcohol and foods that are acidic, spicy, fatty, and processed. Focus on lean proteins, low-acid fruits and vegetables, and whole grains. Medications: Changed From hyoscyamine sulfate 0.125 mg PO QID PRN 10 tabs 0RF dyspepsia R10.13 - Epigastric pain To hyoscyamine sulfate 0.125 mg PO QID 20 tabs 1RF dyspepsia R10.13 - Epigastric pain
[2024-10-17 08:21] VITALS: BP 136/66; PULSE 76; TEMP 36.3; O2SAT 98; BMI 38.8
--- OUTSIDE RECORDS SUMMARY | 2024-10-17 08:27 | XMS_ITS | Patient Health Record ---
Author Organization [facility] Address [address] [place] [address] Support Name Relationship Address Phone HANSEL FAM Guarantor Unknown [phone] Reason For Referral No Information Problems Problem Type SNOMED Code ICD Code Onset Dates Problem Status W/U Status Risk Notes Problem Routine gynecological examination (V72.31) Active confirmed Major Problem Dietary management surveillance (575306241) Dietary surveillance and counseling (V65.3) Active confirmed Diag Problem Exercises teaching, guidance, and counseling (530532249) Exercise counseling (V65.41) Active confirmed Diag Plan Of Treatment No Information Insurance Providers Payer Name Payer Address Payer Phone Subscriber Number Group Number Insured Name Patient Relationship to Insured Coverage Start Date Coverage End Date [facility] [address] [place] [address] [id number] HANSEL FOX Self - patient is the insured
--- OUTSIDE RECORDS SUMMARY | 2024-10-17 08:27 | XMS_ITS | Patient Health Record ---
Author Organization [facility] Address [address] [place] [address] Care Team Providers Care Java Project Manager Name Role Phone Charisse Beltran Primary Care Provider Ruiz Camacho Unavailable [phone] Dawood Rich Unavailable Unavailable Allergies Allergen (clinical [...] Problem Status W/U Status Risk Notes Problem [id number] Colon cancer screening (Z12.11) Active confirmed Problem Diverticular disease of colon (782346837) Diverticulosis of large intestine without perforation or abscess without bleeding (K57.30) Active confirmed Problem 774896660820097 Preprocedural examination (Z01.818) Active confirmed Problem 046734526 Family history o f colon cancer (Z80.0) Active confirmed Plan Of Treatment Future Test Test Name Order Date COLONOSCOPY 04/27/2022 Insurance Providers Payer Name Payer Address Payer Phone Subscriber Number Group Number Insured Name Patient Relationship to Insured Coverage Start Date Coverage End Date [employer] [place] [address] [address] [place] [address] [id number] 5 HANSEL FOX Self - patient is the insured Medical (General) History Medical History History ICD Code Denies [place],DM,CVA,Lung disease,renal dise ase Arthritis Anemia in relation to her pr evious gastric bypass for which she receives B12 injections monthly and a yearly iron infusion with Dr. Rich Surgical History Surgery Date(Month/Year) C-sections x 2 [phone] Tubal ligation 2001 Gastric bypass 2003 Cholecystectomy 2018 Breast reduction 2014
== END 2024-10-17 09:14 | disposition home or self-care (01) ==
LOC: HO.HMCH 08:18
PROVIDERS: Visit Provider Nurse Practitioner Family
DX: R10.13 Epigastric pain (principal)

== ENCOUNTER → 2024-11-15 10:15 | Outpatient (BNV) | payer OTHER, SELFPAY | PROVIDERS: PCP Internal Medicine; Visit Provider Internal Medicine | DX: Z12.31 Encounter for screening mammogram for malignant neoplasm of breast (principal) | CPT/HCPCS: 77063; 77067 ==

== ENCOUNTER 2024-11-15 10:17 | Outpatient (REF) | payer OTHER, SELFPAY ==
--- NOTE | ~2024-11-15 | MM_ITS ---
EXAMINATION: MM SCREENING DIGITAL BREAST TOMOSYNTHESIS, BILATERAL CLINICAL INFORMATION: Screening. Asymptomatic. COMPARISON: Mammography: Comparison is made with available priors TECHNIQUE: Digital breast mammography with tomosynthesis is performed in both the craniocaudal and mediolateral oblique views along with computer-aided detection (CAD). FINDINGS: There are scattered areas of fibroglandular density (ACR BI-RADS breast composition Category b). Bilateral reduction mammoplasty. There are no significant masses, abnormal calcifications, or other abnormalities.
--- OUTSIDE RECORDS SUMMARY | 2024-11-15 10:19 | XMS_ITS | Patient Health Record ---
Author Organization [facility] Address [address] [place] [address] Care Team Providers Care Plant Cytologist Name Role Phone Charisse Beltran Primary Care Provider Ruiz Camacho Unavailable [phone] Dawood Rich Unavailable Unavailable Allergies Allergen (clinical [...] Problem Status W/U Status Risk Notes Problem 160749623 Colon cancer screening (Z12.11) Active confirmed Problem Diverticular disease of colon (600781728) Diverticulosis of large intestine without perforation or abscess without bleeding (K57.30) Active confirmed Problem 349109932376426 Preprocedural examination (Z01.818) Active confirmed Problem 220369076 Family history o f colon cancer (Z80.0) Active confirmed Plan Of Treatment Future Test Test Name Order Date COLONOSCOPY 04/27/2022 Insurance Providers Payer Name Payer Address Payer Phone Subscriber Number Group Number Insured Name Patient Relationship to Insured Coverage Start Date Coverage End Date [employer] [place] [address] [address] [place] [address] [id number] 5 HANSEL FOX Self - patient is the insured Medical (General) History Medical History History ICD Code Denies [place],DM,CVA,Lung disease,renal dise ase Arthritis Anemia in relation to her pr evious gastric bypass for which she receives B12 injections monthly and a yearly iron infusion with Dr. Rich Surgical History Surgery Date(Month/Year) C-sections x 2 7365-4910 Tubal ligation 2001 Gastric bypass 2003 Cholecystectomy 2018 Breast reduction 2014
--- OUTSIDE RECORDS SUMMARY | 2024-11-15 10:19 | XMS_ITS | Patient Health Record ---
Author Organization [facility] Address [address] [place] [address] Support Name Relationship Address Phone HANSEL FAM Guarantor Unknown Reason For Referral No Information Problems Problem Type SNOMED Code ICD Code Onset Dates Problem Status W/U Status Risk Notes Problem Gynecological examination normal (778378378546961) Routine gynecological examination (V72.31) Active confirmed Major Problem Dietary management surveillance (596454090) Dietary surveillance and counseling (V65.3) Active confirmed Diag Problem Exercises teaching, guidance, and counseling (134534889) Exercise counseling (V65.41) Active confirmed Diag Plan Of Treatment No Information Insurance Providers Payer Name Payer Address Payer Phone Subscriber Number Group Number Insured Name Patient Relationship to Insured Coverage Start Date Coverage End Date [facility] [address] [place] [address] [id number] HANSEL FOX Self - patient is the insured
== END 2024-11-15 10:18 | disposition home or self-care (01) ==
LOC: HO.MAMMO 10:17
PROVIDERS: PCP Internal Medicine; Visit Provider Internal Medicine
DX: Z12.31 Encounter for screening mammogram for malignant neoplasm of breast (principal)
CPT/HCPCS: 77063; 77067

== ENCOUNTER 2024-11-26 08:12 | Outpatient (REF) | payer OTHER, SELFPAY ==
--- NOTE | ~2024-11-26 | US_ITS ---
CLINICAL HISTORY: R79.89 - Other specified abnormal findings of blood chemistry US abdomen complete Comparison: CT/REG/SR - CT ABDOMEN PELVIS W IV CON - 10/09/24 02:50 EDT Findings: The visualized pancreas is normal. The aorta and inferior vena cava are normal caliber. Partially visualized IVC filter. Mild hepatomegaly measuring 18.5 cm with uniform echotexture. Possible mildly diffuse steatosis. There is no intrahepatic bile duct dilatation. The common duct is 5 mm in diameter. Postcholecystectomy. The main portal vein is antegrade. The right kidney is 10.5 cm in length. The left kidney is 11 cm in length. The spleen is normal size measuring 9.3 cm. There are innumerable echogenic partially vascularized lesions throughout the spleen possibly reflecting hemangiomas largest measuring 2.4 x 2.5 x 2.5 cm. There is an adjacent small simple appearing cyst in the spleen measuring 0.4 x 0.3 x 0.5 cm. If clinical concern persists consider follow-up MRI. No ascites. IMPRESSION: No acute findings. 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 Mild hepatomegaly with steatosis. This document has been electronically signed by: Low Coe MD on 11/26/2024 21:02:19
--- OUTSIDE RECORDS SUMMARY | 2024-11-26 08:30 | XMS_ITS | Patient Health Record ---
Author Organization [facility] Address [address] [place] [address] Care Team Providers Care Obiee Obia Solution Architect Name Role Phone Charisse Beltran Primary Care Provider Ruiz Camacho Unavailable [phone] Dawood Rich Unavailable Unavailable Allergies Allergen (clinical [...] Problem Status W/U Status Risk Notes Problem 369385745 Colon cancer screening (Z12.11) Active confirmed Problem Diverticular disease of colon (325715675) Diverticulosis of large intestine without perforation or abscess without bleeding (K57.30) Active confirmed Problem 424577909878356 Preprocedural examination (Z01.818) Active confirmed Problem 271289549 Family history o f colon cancer (Z80.0) Active confirmed Plan Of Treatment Future Test Test Name Order Date COLONOSCOPY 04/27/2022 Insurance Providers Payer Name Payer Address Payer Phone Subscriber Number Group Number Insured Name Patient Relationship to Insured Coverage Start Date Coverage End Date [employer] [place] [address] [address] [place] [address] [id number] 5 HANSEL FOX Self - patient is the insured Medical (General) History Medical History History ICD Code Denies MD,DM,CVA,Lung disease,renal dise ase Arthritis Anemia in relation to her pr evious gastric bypass for which she receives B12 injections monthly and a yearly iron infusion with Dr. Rich Surgical History Surgery Date(Month/Year) C-sections x 2 8927-3753 Tubal ligation 2001 Gastric bypass 2003 Cholecystectomy 2018 Breast reduction 2014
--- OUTSIDE RECORDS SUMMARY | 2024-11-26 08:31 | XMS_ITS | Patient Health Record ---
Author Organization [facility] Address [address] [place] [address] Support Name Relationship Address Phone HANSEL FAM Guarantor Unknown [phone] Reason For Referral No Information Problems Problem Type SNOMED Code ICD Code Onset Dates Problem Status W/U Status Risk Notes Problem Gynecological examination normal (501545933311687) Routine gynecological examination (V72.31) Active confirmed Major Problem Dietary management surveillance (602209614) Dietary surveillance and counseling (V65.3) Active confirmed Diag Problem Exercises teaching, guidance, and counseling (183739028) Exercise counseling (V65.41) Active confirmed Diag Plan Of Treatment No Information Insurance Providers Payer Name Payer Address Payer Phone Subscriber Number Group Number Insured Name Patient Relationship to Insured Coverage Start Date Coverage End Date [facility] [address] [place] [address] [phone] [id number] HANSEL FOX Self - patient is the insured
== END 2024-11-26 08:13 | disposition home or self-care (01) ==
LOC: HO.US 08:12
PROVIDERS: PCP Internal Medicine; Visit Provider Internal Medicine
DX: R79.89 Other specified abnormal findings of blood chemistry (principal)
CPT/HCPCS: 76700

== ENCOUNTER → 2024-11-26 08:22 | Outpatient (BNV) | payer OTHER, SELFPAY | PROVIDERS: PCP Internal Medicine; Visit Provider Radiology Diagnostic Radiology | DX: R79.89 Other specified abnormal findings of blood chemistry (principal) | CPT/HCPCS: 76700 ==